=== PATIENT | female | born 1975 | race Caucasian/White ===

== ENCOUNTER 2019-03-21 13:02 | Emergency (ER) | payer BC ==
--- OUTSIDE RECORDS SUMMARY | 2019-03-21 13:05 | XMS REPORT ---
:1975 Author Organization eClinicalWorks Care Team Providers Name Role Phone Tyron Sheparden Provider Role Unavailable Allergies, Adverse Reactions, Alerts Substance Reaction Event Type penicillin Info Not Available Drug Allergy Problems Problem Type Condition Code Onset Dates Condition Status Problem Edema R60.9 Active Problem Abnormal results of thyroid R94.6 Active function studies Problem Cerebral palsy G80.9 Active Problem Obesity (BMI 30.0-34.9) E66.9 Active Problem Hypercholesterolemia E78.00 Active Problem Essential hypertension I10 Active Problem Depression screening Z13.31 Active Problem Abnormal laboratory test R89.9 Active Problem History of colon cancer Z85.038 Active Problem Dietary surveillance and counseling Z71.3 Active Assessment History of colon cancer Z85.038 Active Assessment Hypercholesterolemia E78.00 Active Assessment Depression screening Z13.31 Active Assessment Dietary surveillance and counseling Z71.3 Active Assessment Essential hypertension I10 Active Assessment Obesity (BMI 30.0-34.9) E66.9 Active Medications Medication Code Code Instructions Start End Status Dosage System Date Date Paroxetine HCl [facility] 10593277800 20 MG Orally Active 1 tablet Once a day in the morning Trazodone HCl [facility] 10987829258 50 MG Orally Active 1 tablet Once a day at bedtime as needed Trintellix [facility] 53859650099 10 MG Orally Active 1 tablet Once a day Lisinopril [facility] 29204328582 10 MG Orally Active 1 tablet Once a day BusPIRone HCl [facility] 80591044396 7.5 MG Orally Active 1 tablet Twice a day as needed Lipitor [facility] 21063209930 20 MG Orally Active 1 tablet Once a day in evening Results No Known Results Summary Purpose eClinicalWorks Submission
--- OUTSIDE RECORDS SUMMARY | 2019-03-21 13:05 | XMS REPORT ---
:1975 Author Organization [facility] Address [address] [place] [address] Dr. Garcia. [address] [place] [id number] Care Team Providers Name Role Phone JANETTE CAIN Unavailable Unavailable Problems This patient has no known problems. Allergies, Adverse Reactions, Alerts This patient has no known allergies or adverse reactions. Medications This patient has no known medications. Results Test Description Test Time Test Comments Text Results Atomic Results Result Comments JANIS PEREZ IN 2017-05-05 16:47:00 Reason for FINAL REPORT PATIENT OR/30 MINUTE exam:->intraop left ID: [id number] INCREMENTS sided port History: Chest port placement. FINDINGS: Intraoperative fluoroscopy was provided for a total of 14.9 seconds during left chest port placement. Total estimated patient dose reported as (Ka,r) was 1.6 mGy. Multiple images obtained during the procedure show a left subclavian chest port which appears in expected position with its tip near the caval atrial junction after placement. Limited evaluation of the chest is otherwise unremarkable. Signed: Randy Persaud Verified Date/Time: 05/05/2017 16:47:27 Reading Location: [facility] Reading Room - [facility] 1.310.12 S CHEST, 1 VIEW, 2017-04-28 10:05:00 Reason for exam:->port FINAL REPORT PATIENT NON DEPT placementShould this be ID: [id number] performed at the History: Port bedside?->Yes placement. FINDINGS: Single AP view of the chest shows a normal appearing heart and mediastinum. Lungs are clear, free of edema, focal consolidation or visible effusions. Left subclavian ary catheter has been placed, its tip appears to lie in expected position over the superior vena cava. No pneumothorax. Bones are unremarkable. IMPRESSION: 1. Left chest port appears in expected position. No pneumothorax. Signed: Randy Persaud MDReport Verified Date/Time: 04/28/2017 10:05:34 Reading Location: [facility] Radiology Reading Room REHENSIVE METABOLIC PANEL 2017-04-27 09:52:00 Test Item Value Reference Range Comments TOTAL PROTEIN (BEAKER) (test 6.5 gm/dL 6.0-8.5 tdcy=039) ALBUMIN (BEAKER) (test 4.0 g/dL 3.5-5.0 gaqd=4553) ALKALINE PHOSPHATASE 77 U/L 30-115 (BEAKER) (test skuw=865) BILIRUBIN TOTAL (BEAKER) 0.4 mg/dL 0.1-1.2 (test vgub=169) SODIUM (BEAKER) (test 142 meq/L 135-148 ftfa=720) POTASSIUM (BEAKER) (test 3.4 meq/L 3.6-5.5 yurz=074) CHLORIDE (BEAKER) (test 105 meq/L 98-106 sscv=747) CO2 (BEAKER) (test mizj=492) 26 meq/L 20-29 BLOOD UREA NITROGEN (BEAKER) 19 mg/dL 10-26 (test puqi=995) CREATININE (BEAKER) (test 0.60 mg/dL 0.50-1.20 pnsh=421) GLUCOSE RANDOM (BEAKER) 104 mg/dL 70-110 (test rlnn=860) CALCIUM (BEAKER) (test 9.5 mg/dL 8.5-10.5 lloi=085) AST (SGOT) (BEAKER) (test 13 U/L 5-40 pqxr=275) ALT (SGPT) (BEAKER) (test 15 U/L 5-50 yakl=560) EGFR (BEAKER) (test 109 mL/min/1.73 sq m ESTIMATED GFR IS NOT jayh=8291) ACCURATE CREATININE CLEARANCE IN PREDICTING GLOMERULAR FILTRATION RATE. ESTIMATED GFR IS NOT APPLICABLE FOR DIALYSIS PATIENTS.
--- NOTE | 2019-03-21 13:50 | RAD REPORT ---
EXAM DESCRIPTION: CT - Ct Stroke Brain Wo Cont - 03/21/2019 1:42 pm CLINICAL HISTORY: Numbness COMPARISON: 2014 TECHNIQUE: Computed axial tomography of the head was obtained. All CT scans are performed using dose optimization technique as appropriate and may include automated exposure control or mA/KV adjustment according to patient size. FINDINGS: An intracranial bleed is not seen . The ventricles are normal in caliber. No extra-axial fluid collection is noted. Fluid within the sinuses/ mastoids is not seen. IMPRESSION: No acute intracranial abnormality is seen. If patient's symptoms persist MRI of the bra in would be recommended. Steve of the emergency room was notified at 20:45 p.m. March 21, 2019
[2019-03-21 13:56] LABS: Absolute Lymphocytes (CBC) 0.6 K/uL (0.7-4.9); Basophils % 0.7 % (0-1.3); Hematocrit 41.9 % (36.0-45.0); Lymphocytes % 12.9 % (15.3-44.8); RBC Red Blood Cell Count 4.66 M/uL (3.86-4.86)
[2019-03-21 14:04] LABS: Protime INR 0.92
[2019-03-21 14:13] LABS: BUN Blood Urea Nitrogen 13 mg/dL (7-18); Bicarbonate 27 mmol/L (21-32); Glucose Level 110 mg/dL (74-106); Potassium 3.5 mmol/L (3.5-5.1); Sodium Level 144 mmol/L (136-145)
--- NOTE | 2019-03-21 14:21 | RAD REPORT ---
EXAM DESCRIPTION: Lasha Single View03/21/2019 2:16 pm CLINICAL HISTORY: Shortness of breath COMPARISON: March 2017 FINDINGS: The lungs appear clear of acute infiltrate. The heart is normal size. A central venous li ne has its tip in the superior vena cava. Scoliosis is present IMPRESSION: No acute abnormalities displayed
[2019-03-21] MEDS ORDERED: LORazepam 2 MG/ML VIAL ONE (14:36)
--- NOTE | 2019-03-21 15:18 | EKG ---
Test Date: 2019-03-21 Test Time: 13:52:46 Java J2Ee Application Developer: SOFI MEASUREMENT RESULTS: Intervals: Rate: 98 DC: 132 QRSD: 72 QT: 334 QTc: 426 [place]: P: 77 DC: 132 QRS: 55 T: 16 INTERPRETIVE STATEMENTS: Normal sinus rhythm Right atrial enlargement Abnormal ECG Compared to ECG 10/23/2014 14:17:39 Atrial abnormality now present Electronically Signed On 03-21-19 15:17:48 DRUM SANDER SETTER by Clinton Joy
--- NOTE | 2019-03-21 15:25 | RAD REPORT ---
EXAM DESCRIPTION: MRI - Brain Wo Cont - 03/21/2019 3:12 pm CLINICAL HISTORY: NUMBNESS Headache, drowsiness, CVA symptomology COMPARISON: Ct Stroke Brain Wo Cont dated 03/21/2019 TECHNIQUE: Multi-sequence, multiplanar MR imaging of the brain was performed without contrast. FINDINGS: No intracranial hemorrhage, hydrocephalus or extra-axial fluid collections. No edema or sh ift of midline structures. No findings to suspect brain mass. DWI is negative for acute CVA. Midline structures are normally formed. Mastoid air cells and paranasal sinuses are clear. IMPRESSION: Negative for acute CVA or other acute intracranial abnormality.
--- NOTE | 2019-03-21 15:50 | RAD REPORT ---
EXAM DESCRIPTION: - CP - 03/21/2019 3:45 pm CLINICAL HISTORY: NUMBNESS Headache, drowsiness, CVA COMPARISON: No comparisons TECHNIQUE: Real-time sonographic evaluation of both carotid systems was performed. Doppler interroga tion was performed with waveform tracing bilaterally. FINDINGS: Normal high resistance waveforms are noted in both external carotid arteries. The common c arotid arteries and internal carotid arteries show normal low resistance waveforms. No significant plaque formation is seen. Peak systolic and end diastolic velocity values and the ICA/ CCA ratios are in the non-hemodynamically significant range. Antegrade flow seen in both vertebral arteries. IMPRESSION: No significant atherosclerotic changes noted. No evidence of a hemodynamically significant stenosis.
--- NOTE | 2019-03-21 16:31 | EDPHYS ---
Physician Documentation [facility] Name: Mireille Munguia Age: 43 yrs Sex: Female : 1975 Arrival Date: 03/21/2019 Time: 13:07 Bed 17 Private MD: Suma Shepard ED Physician Chilango Powers HPI: 03/21 14:06 This 43 yrs old Female presents to ER via Wheelchair with complaints of pm1 Numbness Of Arm, High Blood Pressure. 14:06 The patient presents to the emergency department with paresthesias of the left forearm pm1 and left hand. Onset: The symptoms/episode began/occurred 1 hour(s) ago. Context: occurred at work, occurred while the patient was walking with walker. Associated signs and symptoms: Pertinent positives: elevated blood pressure, Pertinent negatives: fever, headache, neck stiffness. Severity of symptoms: in the emergency department the symptoms have improved. The patient has not experienced similar symptoms in the past. The patient has not recently seen a physician. Patient was at working and walking to the restroom with her walker. She felt numbness to the medial aspect of her left forearm and her left hand. checked her blood pressure and it was elevated above her norm. has a history of stroke 4 years ago and was worried that she was having another event. 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 - Coronavirus screen:: The patient has NOT traveled to [place], [place], or [place] in the past 14 days. - Social history:: Smoking status: . - Ebola Screening: : Patient denies travel to an Ebola-affected area in the 21 days before illness onset. ROS: 14:06 Constitutional: Negative for fever, chills, and weight loss, Eyes: Negative for injury, pm1 pain, redness, and discharge, ENT: Negative for injury, pain, and discharge, Neck: Negative for injury, pain, and swelling, Cardiovascular: Negative for chest pain, palpitations, and edema, Respiratory: Negative for shortness of breath, cough, wheezing, and pleuritic chest pain, Abdomen/GI: Negative for abdominal pain, nausea, vomiting, diarrhea, and constipation, Back: Negative for injury and pain, MS/Extremity: Negative for injury and deformity, Skin: Negative for injury, rash, and discoloration. 14:06 Neuro: Positive for tingling, of the left hand and medial aspect of left forearm. Exam: 14:06 Constitutional: This is a well developed, well nourished patient who is awake, alert, pm1 and in no acute distress. Head/Face: Normocephalic, atraumatic. Eyes: Pupils equal round and reactive to light, extra-ocular motions intact. Lids and lashes normal. Conjunctiva and sclera are non-icteric and not injected. Cornea within normal limits. Periorbital areas with no swelling, redness, or edema. ENT: Nares patent. No nasal discharge, no septal abnormalities noted. Tympanic membranes are normal and external auditory canals are clear. Oropharynx with no redness, swelling, or masses, exudates, or evidence of obstruction, uvula midline. Mucous membranes moist. Neck: Trachea midline, no thyromegaly or masses palpated, and no cervical lymphadenopathy. Supple, full range of motion without nuchal rigidity, or vertebral point tenderness. No Meningismus. Chest/axilla: Normal chest wall appearance and motion. Nontender with no deformity. No lesions are appreciated. Cardiovascular: Regular rate and rhythm with a normal S1 and S2. No gallops, murmurs, or rubs. Normal PMI, no JVD. No pulse deficits. Respiratory: Lungs have equal breath sounds bilaterally, clear to auscultation and percussion. No rales, rhonchi or wheezes noted. No increased work of breathing, no retractions or nasal flaring. Abdomen/GI: Soft, non-tender, with normal bowel sounds. No distension or tympany. No guarding or rebound. No evidence of tenderness throughout. Back: No spinal tenderness. No costovertebral tenderness. Full range of motion. Skin: Warm, dry with normal turgor. Normal color with no rashes, no lesions, and no evidence of cellulitis. MS/ Extremity: Pulses equal, no cyanosis. Neurovascular intact. Full, normal range of motion. 14:06 Neuro: Orientation: is normal, Mentation: is normal, Cranial nerves: CN II- XII are normal as tested, Cerebellar function: normal finger to nose testing, Motor: is normal, moves all fours, Sensation: is normal, no obvious gross deficits. Vital Signs: 13:17 BP 159 / 90; Pulse 107; Resp 18; Temp 98.3(O); Pulse Ox 99% on R/A; Weight 63.5 kg (R); tw2 Height 4 ft. 10 in. (147.32 cm); Pain 0/10; 15:52 Pulse 92; Resp 17; Temp 98.3; Pulse Ox 100% on R/A; sg 15:55 BP 132 / 94; sg 16:40 BP 129 / 74; Pulse 87; Resp 17; Temp 98.3; Pulse Ox 99% on R/A; Pain 0/10; sg 13:17 Body Mass Index 29.26 (63.50 kg, 147.32 cm) tw2 MDM: 13:26 Patient medically screened. cinthia 13:50 ED course: CT head: Radiologist report - Negative. pm1 14:03 ED course: TPA not given because not a stroke. Likely cubital tunnel syndrome or pm1 cervical radiculopathy possibly from from using walker. 16:28 Data reviewed: vital signs. Data interpreted: Pulse oximetry: on room air is 100 %. pm1 Interpretation: normal. Counseling: I had a detailed discussion with the patient and/or guardian regarding: the historical points, exam findings, and any diagnostic results supporting the discharge/admit diagnosis, lab results, radiology results, the need for outpatient follow up, to return to the emergency department if symptoms worsen or persist or if there are any questions or concerns that arise at home. 03/21 13:27 Order name: Basic Metabolic Panel; Complete Time: 14:37 pm1 03/21 13:27 Order name: CBC with Diff; Complete Time: 14:37 pm1 03/21 13:27 Order name: Protime (+inr); Complete Time: 14:37 pm1 03/21 13:27 Order name: Ptt, Activated; Complete Time: 14:37 pm1 03/21 13:27 Order name: CT Stroke Brain w/o Contrast; Complete Time: 13:53 pm1 03/21 13:27 Order name: Stroke CXR 1 View; Complete Time: 14:37 pm03/21 13:27 Order name: EKG; Complete Time: 13:28 pm03/21 13:27 Order name: Accucheck; Complete Time: 13:56 pm03/21 13:27 Order name: Cardiac monitoring; Complete Time: 13:56 pm03/21 13:27 Order name: EKG - Nurse/Tech; Complete Time: 13:56 pm03/21 13:27 Order name: IV Saline Lock; Complete Time: 13:56 pm03/21 14:03 Order name: MRI - Brain Wo Cont; Complete Time: 16:01 pm03/21 14:03 Order name: Carotid Artery Bilateral US; Complete Time: 16:01 pm03/21 13:27 Order name: Labs collected and sent; Complete Time: 13:56 pm03/21 13:27 Order name: NPO; Complete Time: 13:56 pm03/21 13:27 Order name: O2 Per Protocol; Complete Time: 13:56 pm03/21 13:27 Order name: O2 Sat Monitoring; Complete Time: 13:56 pm03/21 13:27 Order name: Stroke Swallow Screen; Complete Time: 13:56 pm1 Administered Medications: 14:36 Drug: Ativan 0.5 mg Route: IVP; Site: right forearm; 15:50 Follow up: Response: No adverse reaction; Anxiety unchanged sg Disposition: 03/22 08:55 Co-signature as Attending Physician, Chilango Powers MD I agree with the assessment and cinthia plan of care. Disposition: 03/21/19 16:30 Discharged to Home. Impression: Paresthesia of skin. - Condition is Stable. - Discharge Instructions: Hypertension, Paresthesia, Managing Your Hypertension. - Medication Reconciliation Form, Thank You Letter, Antibiotic Education, Prescription Opioid Use form. - Follow up: Emergency Department; When: As needed; Reason: Worsening of condition. Follow up: Private Physician; When: 2 - 3 days; Reason: Recheck today's complaints, Continuance of care, Re-evaluation by your physician. - Problem is new. - Symptoms have improved. Signatures: Dispatcher [employer] EDLewis Avila RN RN Chilango Ramos MD MD cha Marinas, Patrick, MICRO PALEONTOLOGIST MICRO PALEONTOLOGIST pm1 Radha Wheeler RN RN tw2 Corrections: (The following items were deleted from the chart) 03/21 16:44 16:30 03/21/2019 16:30 Discharged to Home. Impression: Paresthesia of skin. Condition sg is Stable. Forms are Medication Reconciliation Form, Thank You Letter, Antibiotic Education, Prescription Opioid Use. Follow up: Emergency Department; When: As needed; Reason: Worsening of condition. Follow up: Private Physician; When: 2 - 3 days; Reason: Recheck today's complaints, Continuance of care, Re-evaluation by your physician. Problem is new. Symptoms have improved. pm1
--- NOTE | 2019-03-21 16:31 | ER ---
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 Transition of care: patient was not received from another setting of care. Onset of symptoms was March 21, 2019. Risk Assessment: Do you want to hurt yourself or someone else? Patient reports no desire to harm self or others. Initial Sepsis Screen: Does the patient meet any 2 criteria? HR > 90 bpm. No. Patient's initial sepsis screen is negative. Does the patient have a suspected source of infection? No. Patient's initial sepsis screen is negative. Care prior to arrival: None. 13:12 Method Of Arrival: Wheelchair tw2 13:12 Acuity: SYDNI 3 tw2 Triage Assessment: 13:16 General: Appears in no apparent distress. Behavior is calm, cooperative, appropriate tw2 for age. 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 - Coronavirus screen:: The patient has NOT traveled to [place], [place], or [place] in the past 14 days. - Social history:: Smoking status: . - Ebola Screening: : Patient denies travel to an Ebola-affected area in the 21 days before illness onset. Screenin:50 Abuse screen: Denies threats or abuse. Denies injuries from another. Nutritional sg screening: No deficits noted. Tuberculosis screening: No symptoms or risk factors identified. Never had TB. The patient has not been NPO before screening. The patient is alert, able to follow commands. The patient does not exhibit slurred or garbled speech The patient is not exhibiting difficulty speaking. The patient does not exhibit difficulty understanding words. The patient is able to swallow own secretions with no drooling or need for suction. Patient tolerated one teaspoon of water. No drooling, immediate coughing, gurgling, or clearing of the throat was noted. The patient tolerated 90mL of water. No drooling, immediate coughing, gurgling, or clearing of the throat was noted. The patient passed the bedside swallow screening. Oral medications may be given as ordered. Contact Physician for further diet orders. Provider notified of bedside swallow screening results: Steve Portillo TEACHER OF GIFTED STUDENTS. Assessment: 13:16 General: Appears in no apparent distress. well groomed, well developed, well nourished, sg Behavior is calm, cooperative, appropriate for age. 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 Neuro: Level of Consciousness is awake, alert, obeys commands, Oriented to person, place, time, Proof Technician Helper are equal bilaterally Moves all extremities. Speech is normal, Facial symmetry appears normal. Neuro: Reports numbness in left cheek, left jaw and left arm. Cardiovascular: Heart tones S1 S2 present Chest pain is denied. Respiratory: Airway is patent Respiratory effort is even, unlabored, Respiratory pattern is regular, symmetrical. GI: Abdomen is round non-distended. : No signs and/or symptoms were reported regarding the genitourinary system. EENT: No signs and/or symptoms were reported regarding the EENT system. Derm: Skin is pink, warm \T\ dry. Musculoskeletal: Circulation, motion, and sensation intact. Range of motion: intact in all extremities. 13:50 Reassessment: Patient appears in no apparent distress at this time. pt CT scan delayed sg due to critical patient on the scanner bed, 15 min delay. 13:50 Reassessment: pt earringx2 removed in CT, placed in a turqouise container and given to sg pt . 15:42 Reassessment: Patient appears in no apparent distress at this time. pt returned from sg MRI/Ultrasound. 15:43 Reassessment: Patient appears in no apparent distress at this time. Patient and/or sg family updated on plan of care and expected duration. Pain level reassessed. Vital Signs: 13:17 BP 159 / 90; Pulse 107; Resp 18; Temp 98.3(O); Pulse Ox 99% on R/A; Weight 63.5 kg (R); tw2 Height 4 ft. 10 in. (147.32 cm); Pain 0/10; 15:52 Pulse 92; Resp 17; Temp 98.3; Pulse Ox 100% on R/A; sg 15:55 BP 132 / 94; sg 16:40 BP 129 / 74; Pulse 87; Resp 17; Temp 98.3; Pulse Ox 99% on R/A; Pain 0/10; sg 13:17 Body Mass Index 29.26 (63.50 kg, 147.32 cm) tw2 ED Course: 13:07 Patient arrived in ED. mr 13:07 Suma Shepard MD is Private Physician. mr 13:14 Triage completed. tw2 13:16 Patient has correct armband on for positive identification. Bed in low position. Call sg light in reach. Side rails up X2. health insurance agent on. Pulse ox on. NIBP on. Warm blanket given. Head of bed elevated. 13:17 Arm band placed on. tw2 13:18 Steve Portillo NP is PHCP. pm1 13:18 Chilango Powers MD is Attending Physician. pm1 13:42 CT Stroke Brain w/o Contrast In Process Unspecified. EDMS 13:50 Initial lab(s) drawn, by laboratory apparatus glass grinder, sent to lab. sg 14:03 EKG done, by electromechanical technician. reviewed by Steve Portillo NP. at1 14:18 Stroke CXR 1 View In Process Unspecified. EDMS 14:21 Lewis Odom, RN is Primary Nurse. sg 14:54 MRI - Brain Wo Cont In Process Unspecified. EDMS 15:45 Carotid Artery Bilateral US In Process Unspecified. EDMS 16:40 No provider procedures requiring assistance completed. IV discontinued, intact, sg bleeding controlled, No redness/swelling at site. Pressure dressing applied. Administered Medications: 14:36 Drug: Ativan 0.5 mg Route: IVP; Site: right forearm; sg 15:50 Follow up: Response: No adverse reaction; Anxiety unchanged sg Outcome: 16:30 Discharge ordered by MD. pm1 16:40 Discharged to home via wheelchair, with family. sg 16:40 Condition: good 16:40 Discharge instructions given to patient, family, Instructed on discharge instructions, follow up and referral plans. safety practices, Demonstrated understanding of instructions, follow-up care. 16:44 Patient left the ED. sg Signatures: Dispatcher [employer] EDMS Lewis Odom, RN RN sg Earlene Nunez mr McwilliamsLeni, banana handler EKG Tat1 Steve Portillo, TEACHER OF GIFTED STUDENTS TEACHER OF GIFTED STUDENTS pm1 Radha Wheeler RN RN tw2
[2019-03-21 17:08] VITALS: TEMP 98.3
[2019-03-21 17:10] VITALS: O2SAT 100
[2019-03-21 17:17] VITALS: BP 132/94
== END 2019-03-21 16:44 | disposition home or self-care (01) ==
LOC: ER 13:02
DX: R20.2 Paresthesia of skin (principal); I10 Essential (primary) hypertension; Z85.038 Personal history of other malignant neoplasm of large intestine; Z88.0 Allergy status to penicillin
CPT/HCPCS: 36415; 70450; 70551; 71045; 80048; 85025; 85610; 85730; 93005; 93880; 96374; 99284

== ENCOUNTER 2020-05-28 12:23 | Emergency (ER) | payer BC ==
[2020-05-28] MEDS ORDERED: ETOMIDATE 20 MG/10 ML VIAL IV ONE (12:24)
[2020-05-28] MEDS ORDERED: SUCCINYLCHOLINE 20 MG/ML (10 ML) IV ONE (12:24)
--- OUTSIDE RECORDS SUMMARY | 2020-05-28 12:26 | XMS REPORT | Continuity of Care Document ---
:1975 Author Organization [facility] t Address [address] [place] [address] Care Team Providers Name Role Phone James Primary Care Physician Lab, Fam Pob I Attending Clinician Unavailable MARTIN CAIN Attending Clinician Unavailable Problems Condition Condition Condition Status Onset Resolution Last Treating Co mments Source Name Details Category Date Date Treatment Clinician Date Colon Colon Disease Active [facility] cancer [facility] 00:[facility]: Medical 00 [place] Colon Colon Disease Active [facility] cancer 2- [facility] - metastasiz metastasiz 00:00: La dical ed to ed to [address] [place] [address] liver liver Edema Edema Problem [facility] Abnormal Abnormal Problem Active [facility] results of results of Kelli kes - thyroid thyroid Memoria function function l studies studies [facility] Cerebral Cerebral Diagnosis Active [facility] palsy palsy [facility] Obesity Obesity Problem Active [facility] (BMI (BMI [facility] - 30.0-34.9) 30.0-34.9) La moria [facility] Hyperchole Hyperchole Diagnosis Active [facility] sterolemia sterolemia [facility]elli [facility] - [facility] Essential Essential Diagnosis Active [facility] hypertensi hypertensi Kelli kes - on on [facility] Depression Depression Problem Active [facility] screening screening [facility] - [facility] Abnormal Abnormal Problem Active [facility] laboratory laboratory Kelli kes - test test [facility] History of History of Diagnosis Active [facility] colon colon [facility] - cancer, cancer, [facility]oria stage IV stage IV l Outpati ent Clinics Dietary Dietary Problem Active NAJMA Simeon surveillan surveillan [facility] - ce and ce and Memoria counseling counseling l [facility] Anxiety Anxiety Diagnosis [facility] Hypokalemi Hypokalemi Diagnosis Active [facility] Allergies, Adverse Reactions, Alerts Allergy Allergy Status Severity Reaction(s) Onset Inactive Treating Comm ents Source Name Type Date Date Clinician Penicill Propensi Active Rash [facility] in ty to 2 [facility] - adverse 00:00: Medical reaction 00 Center s penicill Adverse Active Info Not [facility] in Reaction Available [facility] Social History Social Habit Start Date Stop Date Quantity Comments Source Sex Assigned At [facility] Tobacco use and 2017-04-29 2017-04-29 Never used [facility] Kelli danay - exposure 00:00:00 00:00:00 [facility] Alcohol intake 2017-04-29 2017-04-29 Current drinker NAJMA rothman [facility] - 00:00:00 00:00:00 of alcohol [facility] (finding) Alcohol Comment 2017-04-27 2017-04-27 socially NAJMA Douglass - 00:00:00 00:00:00 [facility] Smoking Status Start Date Stop Date Source Never smoker [facility] Medications Ordered Filled Start Stop Current Ordering Indication Dosage Frequency Signature Comments Components Source Medication Medication Date Date Medication? Clinician (SIG) Name Name aspirin 81 Yes 81mg QD Take [address] MG EC 3-06 by mouth [facility] - tablet 09:54: daily. Medical 52 Center multivitami Yes 1{tbl} QD Take [address] n 3-06 tablet by [facility] - (MULTIVITAM 09:54: mouth Medic al IN) per 52 daily. [place] tablet cyanocobala Yes 1000ug QD Take 1,[address] [facility] min 3-06 mcg by [facility] - (VITAMIN 09:54: mouth Medical B-12) 1000 52 daily. Center MCG tablet ascorbic Yes 1000mg QD Take 1,[address] acid, 3-06 mg by [facility] - vitamin C, 09:54: mouth Medica l (VITAMIN C) 52 daily. Center 1000 MG tablet atorvastati 2018-0 Yes TK [address] [facility] n (LIPITOR) 1-24 QD [facility] - 20 MG 00:00: Medical tablet 00 Center lisinopril 2018-0 Yes TK [address] (PRINIVIL,Z 1-24 QD [facility] - ESTRIL) 10 00:00: Medical MG tablet 00 Center Lisinopril Lisinopril Yes Sum[place] 1-[address] [facility] tablets [facility] Trintellix Trintellix Yes [place] [address] [facility] [address] [facility] Lipitor Lipitor Yes [place] [address] [facility] in evening [facility] - [facility] Paroxetine Paroxetine Yes [place] [address] HCl HCl [place] in the [facility] - morning [facility] ent Clinics Trazodone Trazodone Yes [place] [address] HCl HCl [place] at bedtime Luke s - as needed [facility] l Outpati ent Clinics BusPIRone BusPIRone Yes [place] [address] HCl HCl [place] as needed [facility] - for [facility] anxiety l Outpati ent Clinics Procedures This patient has no known procedures. Encounters Start End Encounter Admission Attending Care Care Encounter Source Date/Time Date/Time Type Type Clinicians Facility Department ID 2020-04-17 2020-04-17 Outpatient [facility] [id number] [facility] 06:58:00 06:58:00 2020-04-02 2020-04-02 Outpatient [facility] [id number] [facility] 09:21:00 09:21:00 2020-03-05 2020-03-05 [facility] [id number] 08:54:11 09:09:11 Visit Fam Pob I Health [id number] Gay [id number] Professio [phone] nal [address] 2019-09-15 2019-09-15 Outpatient Claudine Mittal [id number] [facility] 13:20:00 13:20:00 [facility] Family Medicine Medicine Outpati ent [facility] 2019-09-08 2019-09-08 Outpatient Claudine Mittal [id number] 14:08:00 14:08:00 [facility] ent [facility] 2019-06-20 2019-06-20 Outpatient Claudine Chowt [id number] 11:30:00 11:30:00 [facility] ent [facility] 2018-08-19 2018-08-19 Outpatient Claudine [place] [id number] 16:20:00 16:20:00 [facility] Results Test Description Test Time Test Comments Results Result Sourc e Comments [place], 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 FINDINGS: Intraoperative fluoroscopy [...] Persaud Verified Date/Time: 05/05/2017 16:47:27 Reading Location: [facility] Diagnostic Imaging Reading Room - [facility] 1310.12 , CHEST, 1 Reason for FINAL REPORT VIEW, NON DEPT 6 exam:->port PATIENT ID: 10:05:00 placementShould this [id number] History: be performed at the Port placement. bedside?->Yes FINDINGS: Single AP view of the chest [...] expected position. No pneumothorax. Signed: Randy Persaud Verified Date/Time: 04/28/2017 10:05:34 Reading Location: [facility] Radiology Reading Room REHENSIVE METABOLIC PANEL 2017-04-27 09:52:00 Test Item Value Reference Range Interpretation Comme nts TOTAL PROTEIN (BEAKER) 6.5 gm/dL 6.0-8.5 (test code = 770) ALBUMIN (BEAKER) (test code 4.0 g/dL 3.5-5.0 = 1145) ALKALINE PHOSPHATASE 77 U/L 30-115 (BEAKER) (test code = 346) BILIRUBIN TOTAL (BEAKER) 0.4 mg/dL 0.1-1.2 (test code = 377) SODIUM (BEAKER) (test code 142 meq/L 135-148 = 381) POTASSIUM (BEAKER) (test 3.4 meq/L 3.6-5.5 L code = 379) CHLORIDE (BEAKER) (test 105 meq/L 98-106 code = 382) CO2 (BEAKER) (test code = 26 meq/L 20-29 355) BLOOD UREA NITROGEN 19 mg/dL 10-26 (BEAKER) (test code = 354) CREATININE (BEAKER) (test 0.60 mg/dL 0.50-1.20 code = 358) GLUCOSE RANDOM (BEAKER) 104 mg/dL 70-110 (test code = 652) CALCIUM (BEAKER) (test code 9.5 mg/dL 8.5-10.5 = 697) AST (SGOT) (BEAKER) (test 13 U/L 5-40 code = 353) ALT (SGPT) (BEAKER) (test 15 U/L 5-50 code = 347) EGFR (BEAKER) (test code = 109 mL/min/1.73 sq m ESTIMATED GFR IS NOT 1092) ACCURATE CRE ATININE CLEARANCE IN RI EDICTING GLOMERULAR FILT RATION RATE. ESTIMATED GFR IS NOT APPLICABLE FOR DIALYSIS PATIEN TS.
[2020-05-28] MEDS ORDERED: LEVETIRACETAM 500 MG/5 ML VIAL IV ONE (13:04)
[2020-05-28] MEDS ORDERED: NA CHLORIDE 0.9% 100 ML ONE (13:04)
[2020-05-28] MEDS ORDERED: LORazepam 2 MG/ML VIAL ONE (13:12)
[2020-05-28 13:23] LABS: Magnesium 2.3 mg/dL (1.8-2.4); Potassium 3.5 mmol/L (3.5-5.1)
[2020-05-28 13:33] LABS: Absolute Lymphocytes (CBC) 1.7 K/uL (0.7-4.9); Basophils % 0.3 % (0-1.3); Hematocrit 42.9 % (36.0-45.0); Lymphocytes % 8.3 % (15.3-44.8); MPV 8.5 fL (7.6-11.3); RBC Red Blood Cell Count 4.31 M/uL (3.86-4.86)
--- NOTE | 2020-05-28 13:44 | RAD REPORT ---
EXAM DESCRIPTION: CT - Head Brain Wo Cont - 05/28/2020 1:32 pm CLINICAL HISTORY: SEIZURE, history of cerebral palsy, history of colon cancer COMPARISON: Ct Stroke Brain Wo Cont dated 03/21/2019 TECHNIQUE: Axial 5 mm thick images of the head were obtained without IV contrast. All CT scans are performed using dose optimization technique as appropriate and may include automated exposure control or mA/KV adjustment according to patient size. FINDINGS: No intracranial hemorrhage is identified. A 2.5 centimeter mass is present in the left parietal lobe. There is extensive 6 centimeter sized are a of surrounding edema. Approximately 2 x 2.5 centimeter area of diminished attenuation without a def ined mass is present in the left frontal lobe inferiorly. A 3 x 1.5 centimeter area of diminished att enuation is present in the right thalamus continuing inferiorly through the cerebral peduncle into th e brainstem and cerebellar peduncle. The 2 left cerebral findings are consistent with mass lesion and surrounding edema. The thalamus and brainstem finding is potentially ischemic but is probably malign michelle as well. There is a questionable 18 millimeter left CP angle mass lesion. There is some edema as sociated with the thalamus and brainstem lesion on the right. Third ventricle is relatively small rel ative to the size of the lateral ventricles. There may be some partial obstructive component. Fourth ventricle is normal size. No midline shift is present. No acute cortical infarction. Mastoid air cells and visualized portions of the paranasal sinuses are clear. No acute bony findings. Findings telephoned to Dr. Gutierrez 13:39 p.m. IMPRESSION: Left parietal 2.5 centimeter mass with surrounding 6 centimeter area of edema. Approximately 2.5 centimeter area of diminished attenuation left frontal lobe probably an additional mass lesion. There is diminished attenuation in the thalamus, right-side brainstem and right cerebellar peduncle t hat is believed to be an additional mass lesion rather than ischemic injury. Patient has a history of colon cancer. It is unknown if that is ongoing disease or remote disease. Cu rrent pattern is more typical for intracranial metastatic disease.
[2020-05-28] MEDS ORDERED: RSI MEDICATION KIT IV ONE (14:05)
[2020-05-28] MEDS ORDERED: KETOROLAC 30 MG/ML INJ ONE (14:06)
[2020-05-28] MEDS ORDERED: LIDOCAINE 4% PATCH ONE (14:06)
[2020-05-28] MEDS ORDERED: MANNITOL 20% 500 ML IV ONE (14:08)
[2020-05-28] MEDS ORDERED: dexAMETHasone 10 MG/ML VIAL ONE (14:08)
[2020-05-28] MEDS ORDERED: DIPHENHYDRAMINE 50 MG/ML VIAL ONE (14:18)
--- NOTE | 2020-05-28 14:43 | ER ---
Nurse's Notes [facility] Name: Mireille Munguia Age: 45 yrs Sex: Female : 1975 Arrival Date: 05/28/2020 Time: 12:25 Bed 20 Private MD: Diagnosis: Brain metastases ;Cerebral edema;Seizure - new onset Presentation: 05/28 12:27 Chief complaint: EMS states: pt had seizure x 2 PTs, no hx of seizures, hx of cerebral iw palsy and recent diagnosis of colon cancer, on oral chemo, upon arrival pt had one minute long generalized seizure, stiffening in right arm and leg, pt now drowsy but awake and answering questions , pt has had diarrhea over the weekend. Coronavirus screen: At this time, the client does not indicate any symptoms associated with coronavirus-19. Ebola Screen: Patient negative for fever greater than or equal to 101.5 degrees Fahrenheit, and additional compatible Ebola Virus Disease symptoms Patient denies exposure to infectious person. Patient denies travel to an Ebola-affected area in the 21 days before illness onset. No symptoms or risks identified at this time. Initial Sepsis Screen: Does the patient meet any 2 criteria? No. Patient's initial sepsis screen is negative. Does the patient have a suspected source of infection? No. Patient's initial sepsis screen is negative. Risk Assessment: Do you want to hurt yourself or someone else? Patient reports no desire to harm self or others. Onset of symptoms was May 28, 2020. 12:27 Method Of Arrival: EMS: [facility] iw 12:27 Acuity: SYDNI 2 iw Historical: - Allergies: 12:32 PENICILLINS; iw - PMHx: 12:32 colon cancer; Hypertension; Cerebral Palsy; iw - Immunization history:: Adult Immunizations up to date. - Social history:: Smoking status: Patient denies any tobacco usage or history of. - Family history:: not pertinent. - Hospitalizations: : No recent hospitalization is reported. Screenin:49 Abuse screen: Denies threats or abuse. Nutritional screening: No deficits noted. bw Tuberculosis screening: No symptoms or risk factors identified. Fall Risk None identified. Assessment: 12:49 General: Appears in no apparent distress. Behavior is calm, cooperative, appropriate bw for age. 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 Neuro: Level of Consciousness is awake, alert, Seizure activity Seizure lasted approximately 1 minutes. Cardiovascular: No deficits noted. Respiratory: No deficits noted. GI: No deficits noted. : No deficits noted. EENT: No deficits noted. Derm: No deficits noted. Musculoskeletal: No deficits noted. 12:59 Reassessment: reports pt had another seizure, lasted approx 1 minute, similar iw to last episode. Dr. Gutierrez notified, verbal order for 1 mg Ativan IVP, given now. 13:34 Reassessment: Patient appears in no apparent distress at this time. No changes from bw previously documented assessment. 14:16 Reassessment: pt became apneic and cyanotic o2 sat 88% on 2L NC. Code blue button bw pushed. MD RT and Charge at bedside. Pt bagged and orders for intubation received. 10 mg of decadron, 100 mg of succ and 20 mg of etomidate administered. 7.5 tube placed, 23 at the teeth. Verified with XR. Pt arm began turning red after medication admin, 25 mg of Benadryl given per order. Mannitol 20% at 0.5mg/kg started. Pt now stable. Chest rise equal and symmetrical, o2 sat 100% on ventilator settings at 400. Pt updated and now at bedside with fela. Pt skin PWD now. Will continue to monitor. Orders for transfer received. 15:09 Reassessment: Report given to [facility] flight paramedics. Unable to give report bw to [facility] [place] [facility] due to bed assignments. Charge nurse aware. Chart and packet sent with flight crew. VSS. Pt stable at this time. Vital Signs: 12:31 BP 149 / 89; Pulse 71; Resp 18 S; Pulse Ox 97% on 2 lpm NC; Weight 65.77 kg (R); iw 13:34 BP 138 / 86; Pulse 74; Resp 18; Pulse Ox 97% on 2 lpm NC; bw 14:38 BP 156 / 98; Pulse 86; Resp 18; Pulse Ox 100% on 65% FiO2 ETT vent; bw ED Course: 12:25 Patient arrived in ED. ds1 12:30 Triage completed. iw 12:31 Arm band placed on. iw 12:32 Inserted saline lock: 22 gauge in left hand, using aseptic technique. Blood collected. iw 12:35 Cesar Gutierrez MD is Attending Physician. rn 12:49 Bernal, Dena, RN is Primary Nurse. bw 12:49 Patient has correct armband on for positive identification. Call light in reach. Side bw rails up X 1. pvc monitor on. Pulse ox on. NIBP on. 12:49 No provider procedures requiring assistance completed. bw 12:53 CBC with Diff Sent. bw 12:53 Basic Metabolic Panel Sent. bw 12:53 Protime (+inr) Sent. bw 13:32 CT Head Brain wo Cont In Process Unspecified. EDMS 13:34 Patient has correct armband on for positive identification. bw 13:46 Inserted saline lock: 20 gauge in left antecubital area, using aseptic technique. sv ,using aseptic technique. done by Harriett HENRIQUEZ. 13:48 Missed attempt(s): 18 gauge in right hand. Bleeding controlled, band aid applied, sv catheter tip intact. 13:50 Inserted saline lock: 20 gauge in right wrist, using aseptic technique. sv 13:58 Assisted provider with intubation using 7.5 mm ETT via oral route. ET tube secured at sv 23cm at the teeth. Set up intubation tray. Intubated by Cesar Gutierrez MD Placement verified by CO2 detector w/ + color change, auscultating bilateral breath sounds, CXR, Patient tolerated well. 14:12 NGT: inserted 16 Fr. other oral, done by Harriett HENRIQUEZ verified placement of air over sv stomach, verified return of gastric contents, Placement verified by X-ray, to intermittent suction. 14:14 X-ray(s) taken. sv 14:17 initiated transfer to [facility], pt was denied due to no icu beds at this time, per rika Gonzalez. 14:26 initiated transfer to [facility]. bd 14:28 pt denied due to no icu capacity. bd 14:29 XRAY Chest (1 view) In Process Unspecified. EDMS 14:33 initiated transfer to [facility]. bd 14:48 pt accepted in transfer to [facility] by dr Horne, admin approval given by rika Soto. 15:21 Bush cath inserted, using sterile technique, 16 Fr., by de, balloon inflated, urine bw specimen collected. other 75 mL clear yellow return, UPT neg, UA sent. Administered Medications: 12:53 Drug: Keppra 1000 mg Route: IV; Rate: calculated rate; Site: left hand; bw 12:59 Drug: Ativan 1 mg Route: IVP; Site: left hand; iw 13:55 Drug: Mannitol 25% 0.5 g/kg Route: IV; Rate: per protocol; Site: left antecubital; iw 13:56 Drug: Decadron - Dexamethasone 10 mg Route: IVP; Site: right hand; bw 13:58 Drug: Etomidate 20 mg Route: IVP; Site: right wrist; sv 13:58 Drug: Succinylcholine 100 mg Route: IVP; Site: right wrist; sv 14:01 Drug: Benadryl (diphenhydrAMINE) 25 mg Route: IVP; Site: right wrist; sv 14:15 Drug: Mannitol 20% 500 ml Route: IV; Rate: calculated rate; Site: left antecubital; bw 14:37 Drug: Versed 2 mg Route: IVP; Site: left hand; bw Outcome: 14:42 ER care complete, transfer ordered by . rn 15:48 Patient left the ED. iw Signatures: Dispatcher [employer] EDMS Melony [place] Stephanie, RN MARTINEZ Ginny Diaz ds1 Regi Cyr RN RN Cesar Gutierrez MD MD rn Webb, MARTINEZ Fernandes RN bw Corrections: (The following items were deleted from the chart) 12:32 12:31 Pulse 100bpm; Resp 18bpm; Spontaneous; Pulse Ox 100% 2 lpm Nasal Cannula; iw iw 14:03 12:31 BP 149 / 89; Pulse 71bpm; Resp 18bpm; Spontaneous; Pulse Ox 97% 2 lpm Nasal iw Cannula; iw
--- NOTE | 2020-05-28 14:43 | EDPHYS ---
Physician Documentation [facility] Name: Mireille Munguia Age: 45 yrs Sex: Female : 1975 Arrival Date: 05/28/2020 Time: 12:25 Bed 20 Private MD: ED Physician Cesar Gutierrez HPI: 05/28 13:26 This 45 yrs old Female presents to ER via EMS with complaints of Seizure. rn 13:26 The patient presents with a history of multiple seizures, a total of 2. Character of rn seizure(s): Loss of consciousness: the patient experienced loss of consciousness, Motor activity: generalized, Incontinence: none, Apnea: the patient did not experience apnea, Eye movements: are unknown. Seizure onset: just prior to arrival. Associated injury: The patient did not suffer any apparent associated injury. Current symptoms: confusion. The patient has not experienced similar symptoms in the past. The patient has not recently seen a physician. Per report, patient with 2 seizures prior to arrival, no hx of seizures in past, has cerebral palsy and recent diagnosis of colon cancer, on latter half of chemo treatment. Had evidence of extension to liver but not head. No fever recently. does report recent diarrhea and decreased PO intake. . Historical: - Allergies: 12:32 PENICILLINS; iw - PMHx: 12:32 colon cancer; Hypertension; Cerebral Palsy; iw - Immunization history:: Adult Immunizations up to date. - Social history:: Smoking status: Patient denies any tobacco usage or history of. - Family history:: not pertinent. - Hospitalizations: : No recent hospitalization is reported. ROS: 13:26 Unable to obtain ROS due to altered mental status. rn Exam: 13:26 Constitutional: Patient somnolent and appears post-ictal, but able to speak some rn comprehensible words. Head/Face: Normocephalic, atraumatic. Eyes: Pupils equal round and reactive to light, extra-ocular motions intact. Cardiovascular: Regular rate and rhythm. No pulse deficits. Respiratory: No increased work of breathing, no retractions or nasal flaring. Abdomen/GI: soft, non-tender Skin: Warm, dry MS/ Extremity: Pulses equal, no cyanosis. Neuro: Somnolent, answers some questions, + left side with contractures, no posturing. Vital Signs: 12:31 BP 149 / 89; Pulse 71; Resp 18 S; Pulse Ox 97% on 2 lpm NC; Weight 65.77 kg (R); iw 13:34 BP 138 / 86; Pulse 74; Resp 18; Pulse Ox 97% on 2 lpm NC; bw 14:38 BP 156 / 98; Pulse 86; Resp 18; Pulse Ox 100% on 65% FiO2 ETT vent; bw Procedures: 14:01 Intubation: Ventilated with 100% NRB prior to procedure. O2 saturation prior to rn registry was 96 %. Intubated orally using # 4 Sofie blade with 7.5 mm ETT. was successful on first attempt. Cricoid pressure applied during procedure. Tube secured with ETT carbone at right side of mouth measured 23 cm at teeth. Placement verified by CO2 detector with (+) color change, auscultating bilateral breath sounds, O2 saturation after procedure was 97 %. Patient tolerated well. MDM: 12:35 Patient medically screened. rn 14:01 ED course: Ct shows multiple brain mets with herniation, no midline shifts but some rn swelling near brainstem, given 10mg decadron, mannitol started, intubated for airway protection after speaking with regarding code status. Will emergently transfer, [facility] since her oncologist is there. . 14:15 ED course: Updated and family regarding metastases and cerebral edema, mannitol rn and decadron given, intubated, awaiting callback for transfer, plan to [facility].. 14:17 ED course: NO beds at [facility]. Family states try at [facility].. rn 14:28 ED course: [facility] also without ICU beds, attempting transfer to [place] with [facility].. rn 14:34 ED course: Verbal report from radiology revealed likely multiple metastases with rn cerebral edema, no midline shift, but + edema of brainstem, possible early herniation.. 14:36 ED course: Pt with GCS 12 upon presentation. . rn 14:39 Response to treatment: There is no appreciated change of the patient's symptoms at this rn time. ED course: Accepted for transfer to [facility] by Dr. Marin. . 05/28 12:36 Order name: CBC with Diff rn 05/28 12:36 Order name: Basic Metabolic Panel rn 05/28 12:36 Order name: Protime (+inr) rn 05/28 12:36 Order name: Ptt, Activated rn 05/28 12:36 Order name: Urine Microscopic Only rn 05/28 12:36 Order name: CK; Complete Time: 13:45 rn 05/28 12:36 Order name: Procalcitonin; Complete Time: 13:45 rn 05/28 12:37 Order name: CBC with Automated Diff EDMS 05/28 12:37 Order name: Basic Metabolic Panel; Complete Time: 13:45 EDMS 05/28 12:37 Order name: Protime (+INR) EDMS 05/28 12:37 Order name: Magnesium; Complete Time: 13:45 rn 05/28 13:43 Order name: CBC Smear Scan EDMS 05/28 15:13 Order name: SARS-COV-2 RT PCR EDMS 05/28 12:36 Order name: IV Start; Complete Time: 12:38 rn 05/28 12:36 Order name: Urine Dipstick-Ancillary (obtain specimen); Complete Time: 15:20 rn 05/28 12:36 Order name: CT Head Brain wo Cont; Complete Time: 13:50 rn 05/28 12:37 Order name: XRAY Chest (1 view) rn 05/28 15:20 Order name: Urine --Ancillary (enter results) 05/28 15:21 Order name: Urine --Ancillary EDFL 05/28 12:36 Order name: EKG - Nurse/Tech; Complete Time: 13:10 rn 05/28 12:56 Order name: Glucose Level rn 05/28 13:29 Order name: Labs - recollect needed: recollect blue top bd 05/28 15:21 Order name: Eleazar; Complete Time: 15:21 bw Administered Medications: 12:53 Drug: Keppra 1000 mg Route: IV; Rate: calculated rate; Site: left hand; bw 12:59 Drug: Ativan 1 mg Route: IVP; Site: left hand; iw 13:55 Drug: Mannitol 25% 0.5 g/kg Route: IV; Rate: per protocol; Site: left antecubital; iw 13:56 Drug: Decadron - Dexamethasone 10 mg Route: IVP; Site: right hand; bw 13:58 Drug: Etomidate 20 mg Route: IVP; Site: right wrist; sv 13:58 Drug: Succinylcholine 100 mg Route: IVP; Site: right wrist; sv 14:01 Drug: Benadryl (diphenhydrAMINE) 25 mg Route: IVP; Site: right wrist; sv 14:15 Drug: Mannitol 20% 500 ml Route: IV; Rate: calculated rate; Site: left antecubital; bw 14:37 Drug: Versed 2 mg Route: IVP; Site: left hand; bw Disposition: 05/28/20 14:42 Transfer ordered to [facility]. Diagnosis are Brain metastases , Cerebral edema, Seizure - new onset. - Reason for transfer: Higher level of care. - Accepting physician is Dr. Marin. - Condition is Serious. - Problem is new. - Symptoms are unchanged. Signatures: Dispatcher [employer] EDFL Divine Dunne, SAWMILLING OPERATOR-C SAWMILLING OPERATOR-CkMelony Ramirez Stephanie RN Regi Barrett RN RN iw Nieto, Roman, MD MD rn Webb, MARTINEZ Fernandes RN bw Corrections: (The following items were deleted from the chart) 14:28 14:10 CORONAVIRUS+MR.LAB.BRZ ordered. [facility] EDFL 15:48 14:42 05/28/2020 14:42 Transfer ordered to [facility]. Diagnosis is Brain iw metastases ; Cerebral edema; Seizure - new onset. Reason for transfer: Higher level of care. Accepting physician is Dr. Marin. Condition is Serious. Problem is new. Symptoms are unchanged. rn
[2020-05-28 14:45] LABS: Protime INR 0.97
[2020-05-28] MEDS ORDERED: MIDAZOLAM HCL 2 MG/2 ML INJ ONE (14:48)
--- NOTE | 2020-05-28 14:49 | RAD REPORT ---
EXAM DESCRIPTION: RAD - Chest Single View - 05/28/2020 2:29 pm CLINICAL HISTORY: seizure Chest pain. COMPARISON: Chest Single View dated 03/21/2019; Chest Pa And Lat (2 Views) dated 03/27/2017; CHEST SING LE VIEW dated 10/23/2014 FINDINGS: Portable technique limits examination quality. The lungs are grossly clear. The heart is normal in size. Tip of the endotracheal tube is at the leve l of the aortic arch.Enteric tube descends in the stomach. Right-sided port catheter has its tip in t he right atrium.
[2020-05-28 15:29] LABS: Urine Specific Gravity/Preg 1.025 (1.005-1.030)
[2020-05-28 15:54] LABS: Urine Bacteria 20-50 /HPF (<20); Urine RBC <5 /HPF (NONE SEEN)
[2020-05-28 15:55] LABS: Urine Mucus 1+ /HPF (NONE SEEN)
[2020-05-28 16:34] VITALS: BP 156/98; O2SAT 100
[2020-05-28 18:42] LABS: Platelet Estimate ADEQ; White Blood Cell Scan OK (OK)
[2020-05-28 18:43] LABS: Blood Morphology Comment NOT SEEN (NOT SEEN)
--- NOTE | 2020-05-29 16:38 | EKG ---
Test Date: 2020-05-28 Test Time: 13:02:31 Aboriginal Education Teacher: KRIS MEASUREMENT RESULTS: Intervals: Rate: 95 RI: 136 QRSD: 78 QT: 346 QTc: 434 [place]: P: 61 RI: 136 QRS: 23 T: 5 INTERPRETIVE STATEMENTS: Normal sinus rhythm Normal ECG Compared to ECG 03/21/2019 13:52:46 Atrial abnormality no longer present Electronically Signed On 05-29-20 16:36:59 CDT by Angel Russell
[2020-05-30 14:50] LABS: Urine Blood Trace-intact (Negative); Urine Glucose Negative (Negative); Urine Protein Negative (Negative); Urine Specific Gravity 1.025 (1.005-1.030); Urine pH 6.5 (5.0-7.0)
== END 2020-05-28 15:48 | disposition short-term general hospital (02) ==
LOC: ER 12:23
DX: C79.31 Secondary malignant neoplasm of brain (principal); R56.9 Unspecified convulsions; G93.6 Cerebral edema; C18.9 Malignant neoplasm of colon, unspecified; I10 Essential (primary) hypertension; G80.9 Cerebral palsy, unspecified; Z20.822 Contact with and (suspected) exposure to COVID-19
CPT/HCPCS: 93005; 87088; 85025; 87086; 80048; 36415; 83735; 82550; 81025; 85610; 85730; 87077; 87186; 84145; 70450; 71045; 94002; 31500; 51702; 99291; U0003; J0330; J1200; J2250; J1100; J1953; 81003; 81015

== ENCOUNTER 2020-06-25 10:38 | Emergency (ER) | payer BC ==
--- OUTSIDE RECORDS SUMMARY | 2020-06-25 10:43 | XMS REPORT | Continuity of Care Document ---
:1975 Author Organization [facility] t Address [address] [place] [address] Care Team Providers Name Role Phone Sharpless Primary Care Physician Cyril Maldonado Attending Clinician Harmony Joy Attending Clinician Lab, Fam Pob I Attending Clinician Unavailable Johny Carvajal MD Attending Clinician Gisela Cool Attending Clinician [phone] MARTIN CAIN Attending Clinician Unavailable Cyril Maldonado Admitting Clinician Payers Payer Name Policy Type Policy Effective Date Expiration Date Sour ce Number [id number] CHOICE 2012 [place] PPO/FEDERAL 510 00:00:00 [employer] [id number] 2012-Pre sentPPO Problems Condition Condition Condition Status Onset Resolution Last Treating Co mments Source Name Details Category Date Date Treatment Clinician Date AMS Diagnosis Active 2020-06-22 Mem oria 4-16 21:54:00 l AMS 00:00: Benigno 00 Active 06/08/2020 [facility] BRAIN METS Diagnosis Active 2020-06-14 Memoria C79.31 4-13 09:38:00 l BRAIN 00:00: Benigno METS 00 C79.31 Active 06/05/2020 [facility] YE Diagnosis Active 2020-06-08 Memoria BILLING/ 4- 18:23:00 l 94 00:00: Benigno BILLING 94 Active [facility] SEIZURE Diagnosis Active 2020-06-14 Me moria 4-05 09:38:00 l SEIZURE 00:00: Benigno 00 Active 05/28/2020 [facility] Rectal Rectal Disease Active 2017-02 [facility] 1[facility]14 [facility] 00 Colon Colon Disease [facility] 00 [place] Colon Colon Disease Active [facility] cancer 2-28 [facility] metastasiz metastasiz 00:00: Hi dical ed to ed to 00 [place] liver liver Edema Edema Problem [facility] Abnormal Abnormal Problem Active [facility] results of results of [facility] - thyroid thyroid Memoria function function l studies studies [facility] Cerebral Cerebral Diagnosis Active [facility] palsy palsy [facility] Obesity Obesity Problem Active [facility] (BMI (BMI [facility] - 30.0-34.9) 30.0-34.9) Hi moria [facility] Clinics Hyperchole Hyperchole Diagnosis Active [facility] sterolemia sterolemia [facility] - Memoria [facility] ent [facility] Essential Essential Diagnosis Active [facility] hypertensi hypertensi Kelli kes - on on Memoria [facility] ent [facility] Depression Depression Problem Active [facility] screening screening [facility] - Memoria [facility] ent [facility] Abnormal Abnormal Problem Active [facility] laboratory laboratory [facility] - test test Memoria [facility] ent [facility] History of History of Diagnosis Active [facility] colon colon [facility] - cancer, cancer, Memoria stage IV stage IV l [facility] Dietary Dietary Problem Active [facility] surveillan surveillan Kelli kes - ce and ce and Memoria counseling counseling [facility] Anxiety Anxiety Diagnosis [facility] Simple Problem Active 2020-06-11 Memor ia obesity 22:25:27 l (disorder) Simple Herm alireza obesity (disorder) Active Problem 06/11/2020 [facility] ALTERED Diagnosis Active 2020-06-22 Hi kim MENTAL 21:54:00 l STATUS, ALTERED Norm n UNSPECIFIE MENTAL D STATUS, UNSPECIFIE D Active [facility] Hypokalemi Hypokalemi Diagnosis Active [facility] Clinics Allergies, Adverse Reactions, Alerts Allergy Allergy Status Severity Reaction(s) Onset Inactive Treating Comm ents Source Name Type Date Date Clinician Penicill Propensi Active Rash [place] n in ty to 2 [facility]i adverse 00:00: st reaction 00 s to drug Penicill Propensi Active Rash [facility] to 213 [facility] - adverse 00:00: Medical reaction 00 Center s penicill penicill Active Memori a ins ins l [place] penicill Adverse Active Info Not [facility] in Reaction Available [facility] Clinics Family History Family Member Diagnosis Comments Start Date Stop Date Source Natural father No Known Problems Yenifer Sandy Natural mother No Known Problems Yenifer Sandy Social History Social Habit Start Date Stop Date Quantity Comments Source Social History 2020-06-01 2020-06-01 [facility] 20:44:02 20:44:02 Alcohol intake 2018-02-10 2018-02-10 Current [facility] thodist 00:00:00 00:00:00 non-drinker of alcohol (finding) Tobacco use and 2018-02-10 2018-02-10 Never used [facility] ethodist exposure 00:00:00 00:00:00 Alcohol Comment 2017-04-27 2017-04-[address] [facility] - 00:00:00 00:00:00 Medical Center Sex Ass[birth year] At [birth year] [facility] ethodist 00:00:00 00:00:00 Smoking Status Start Date Stop Date Source Never smoker [place] [facility] Medications Ordered Filled Start Stop Current Ordering Indication Dosage Frequency Signature Comments Components Source Medication Medication Date Date Medication? Clinician (SIG) Name Name atorvastati No Notes: Kennedy brenda n 4-18 Same as l 02:00: Lipitor Fluoxetine No Notes: Memor ia 4-17 (Same as: l 15:00: Prozac) Aspirin 81 No Notes: Memor ia MG Chewable 4-17 Take with l Tablet 14:00: food. Dexamethaso No Notes: Kennedy brenda ne 4-17 Concentrat l 14:00: ion: [place] 00 4mg/ml dexamethaso Yes 2 mg = 1 Me moria ne 2 mg 4-17 tab, PEG, l oral tablet 12:29: BID, Norm n 00 Taper: Take 4mg (2 tabs) every 6hrs for three days, take 4mg ( 2tabs) every 12hrs for three days , take until follow up, X 30 day, # 60 tab, 0 Refill(s) Hydroxyzine No Notes: Kennedy brenda Hydrochlori 4-17 (Same as: l de 25 MG 10:45: Atarax) Norm n Oral Tablet 00 Avoid alcohol. Dexamethaso No Notes: Memoria ne 4-17 MEDICATION l 05:00: WASTE [place] Product Size: 10 mg Product Wasted: ___ mg Levetiracet No Notes: Kennedy brenda am 4-17 Same as l 02:00: Keppra Benigno 00 Mix with 100 mL NS, LR or D5W MEDICATION WASTE Product Size: 500 mg Product Wasted: ___ mg Docusate No Notes: Memoria 4-17 (Same as: l 02:00: Colace) Benigno (Do Not Crush) sennosides, No Notes: Kennedy brenda CUSTODIAL 4-17 (Same as: l 02:00: Senokot) Benigno 00 Famotidine No Notes: Memor ia 4-17 (Same as: l 02:00: Pepcid) Can be dilute in 5-10cc NS IVP: Slow IV push over at least 2 minutes. Saline No Notes: Memoria Flush 0.9% 4-17 (Same as: l 02:00: BD [place] Posiflush) Sodium No 1,000 mL, Memori a Chloride 4-16 Rate: 50 l 0.9% IV 23:40: ml/hr, Benigno 1,000 mL 00 Infuse over: 20 hr, Route: IV, Dosing Weight 68.182 kg, Total Volume: 1,000, Start date: 06/08/20 18:40:00 CDT, Duration: 30 day, Stop date: 07/08/20 18:39:00 CDT, 1.7, m2, 0 Bisacodyl No Notes: Memori a 4-16 (Same As: l 23:40: Dulcolax, Bisco-Lax) Ondansetron No Notes: Kennedy brenda 4-16 (Same as: l 23:40: Zofran) MEDICATION WASTE Product Size: 4 mg Product Wasted: ___ mg Saline No Notes: Memoria Flush 0.9% 4-16 (Same as: l 23:40: BD Posiflush) Dexamethaso No Notes: Memoria ne 4-16 MEDICATION l 23:20: WASTE Product Size: 10 mg Product Wasted: ___ mg dexamethaso No 2 mg = 1 Me moria ne 2 mg 4-15 tab, PO, l oral tablet 18:07: BID, Take H erm this dose after you have completed 1st round of steroids., X 7 day, # 14 tab, 0 Refill(s), Pharmacy: [facility][id number], 147.32, cm, 06/07/20 5:48:00 CDT, Height, 63.636, kg, 06/07/20 5:48:00 CDT, Weight Sodium No 1,000 mL, Memori a Chloride -15 Rate: 50 l 0.9% IV 16:48: ml/hr, Benigno 1000 mL 00 Infuse over: 20 hr, Route: IV, Dosing Weight 63.636 kg, Total Volume: 1,000, Priority: Routine, Start date: 06/07/20 11:48:00 CDT, Duration: 30 day, Stop date: 07/07/20 11:47:00 CDT, 1.64, m2 Acetaminoph No 325 mg, Mem oria en 4-15 Route: PO, l 16:48: Drug form: Benigno 00 TAB, Q4H, Dosing Weight 63.636, kg, PRN Pain Score 1-3, Start date: 06/07/20 11:48:00 CDT, Duration: 30 day, Stop date: 07/07/20 11:47:00 CDT, 0 Acetaminoph 2020-0 No 1 tab, Kennedy brenda en 325 MG / 4-15 Route: PO, l Hydrocodone 16:48: Drug Form: Benigno Bitartrate 00 TAB, 5 MG Oral Dosing Tablet Weight 63.636, kg, Q4H, PRN Pain Score 4-6, Start date: 06/07/20 11:48:00 CDT, Duration: 30 day, Stop date: 07/07/20 11:47:00 CDT, 0 Bupivacaine 2020-0 No 30 mL, Kennedy brenda Hydrochlori 4-15 Route: l de 2.5 12:00: MISCBenigno MG/ML / 00 Dosing Epinephrine Weight 0.005 MG/ML 63.636, Injectable kg, Solution ONCALL, Start date: 06/07/20 7:00:00 CDT, Duration: 30 day, Stop date: 07/07/20 6:59:00 CDT Bacitracin 2020-0 No 1 appl, Kennedy brenda 0.5 UNT/MG 4-15 Route: l / Polymyxin 12:00: Norm FONG 10 UNT/MG 00 ONCALL, Topical Drug form: Ointment OINT, [Polysporin Priority: ] Routine, Start date: 06/07/20 7:00:00 CDT, Duration: 1 doses or times Fentanyl 2020-0 No 50 Memoria 4-15 microgram, l 12:00: Route: [place] 00 IVP, ONCALL, Dosing Weight 63.636, kg, Priority: Routine, Start date: 06/07/20 7:00:00 CDT, Duration: 1 doses or times bupivacaine 2020-0 No 40 mL, Kennedy brenda 0.5% 4-15 Route: l 12:00: MISC, Benigno 00 Dosing Weight 63.636, kg, ONCALL, Start date: 06/07/20 7:00:00 CDT, Duration: 30 day, Stop date: 07/07/20 6:59:00 CDT Sodium 1-0 No 1,000 mL, Memori a Chloride 4-15 Rate: 50 l 0.9% IV 11:08: ml/hr, Benigno 1,000 mL 00 Infuse over: 20 hr, Route: IV, Dosing Weight 63.636 kg, Total Volume: 1,000, Priority: Routine, Start date: 06/07/20 6:08:00 CDT, Duration: 30 day, Stop date: 07/07/20 6:07:00 CDT, 1.64, m2 Dexamethaso 2021-0 No 6 mg, Memor ia ne 4-15 Route: l 11:08: IVP, Drug [place] 00 form: INJ, ONCE, Dosing Weight 63.636, kg, Start date: 06/07/20 6:08:00 CDT, Stop date: 06/07/20 6:08:00 CDT Famotidine 2021-0 No 20 mg, Memor ia 4-15 Route: l 11:08: IVP, Drug [place] 00 form: INJ, ONCE, Dosing Weight 63.636, kg, Start date: 06/07/20 6:08:00 CDT, Stop date: 06/07/20 6:08:00 CDT Ondansetron 2021-0 No 4 mg, Memor ia 4-15 Route: l 11:08: IVP, Drug [place] 00 form: INJ, Q6H, Dosing Weight 63.636, kg, PRN Nausea & Vomiting, Start date: 06/07/20 6:08:00 CDT, Duration: 30 day, Stop date: 07/07/20 6:07:00 CDT, 0 Promethazin 2021-0 No 25 mg, Kennedy brenda e 4-15 Route: l 11:08: IVPB, Drug Benigno 00 form: INJ, Q6H, Dosing Weight 63.636, kg, PRN Nausea & Vomiting, Start date: 06/07/20 6:08:00 CDT, Duration: 30 day, Stop date: 07/07/20 6:07:00 CDT, 0 Fentanyl 2021-0 No 25 Memoria 4-15 microgram, l 11:08: Route: Benigno 00 IVP, Drug form: INJ, Q1H, Dosing Weight 63.636, kg, PRN Pain Score 7-10, Priority: Routine, Start date: 06/07/20 6:08:00 CDT, Duration: 1 doses or times, Stop date: Limited # of times, 0 Labetalol 2020-0 No 10 mg, Memori a 4-15 Route: l 11:08: IVP, Drug form: INJ, [id number] , Dosing Weight 63.636, kg, PRN Hypertensi on, Start date: 06/07/20 6:08:00 CDT, Duration: 3 doses or times, Stop date: Limited # of times Hydralazine 2020-0 No 10 mg, Kennedy brenda 4-15 Route: l 11:08: IVP, Q4H, Benigno 00 Dosing Weight 63.636, kg, PRN Hypertensi on, Start date: 06/07/20 6:08:00 CDT, Duration: 30 day, Stop date: 07/07/20 6:07:00 CDT Hydroxyzine 2020-0 Yes 25 mg = 1 M emoria Hydrochlori 4-13 tab, PEG, l de 25 MG 12:20: Q6H, PRN Essie nn Oral Tablet 00 as needed for anxiety, # 90 tab, 5 Refill(s), [id number], 147.32, cm, 05/29/20 10:40:00 CDT, Height, 65.909, kg, 05/28/20 18:38:00 CDT, Weight Aspirin 81 2020-0 Yes 81 mg = 1 Me moria MG Chewable 4-13 tab, NJ, l Tablet 12:19: Daily, # Benigno 00 30 tab, 5 Refill(s), Pharmacy: [facility] #[id number], 147.32, cm, 05/29/20 10:40:00 CDT, Height, 65.909, kg, 05/28/20 18:38:00 CDT, Weight atorvastati 2020-0 Yes 80 mg = 1 M emoria n 80 mg 4-13 tab, PEG, l oral tablet 12:19: Bedtime, # [place] 00 30 tab, 5 Refill(s), Pharmacy: [facility] #[id number], 147.32, cm, 05/29/20 10:40:00 CDT, Height, 65.909, kg, 05/28/20 18:38:00 CDT, Weight FLUoxetine Yes 20 mg = 5 Me moria 20 mg/5 mL 4-13 mL, PEG, l oral 12:19: Daily, # Benigno solution 00 150 mL, 5 Refill(s), Pharmacy: [facility] #[id number], 147.32, cm, 05/29/20 10:40:00 CDT, Height, 65.909, kg, 05/28/20 18:38:00 CDT, Weight Famotidine Yes 20 mg = 1 Me moria 20 MG Oral 4-13 tab, PEG, l Tablet 12:18: BID, # 60 Norm n 00 tab, 1 Refill(s), [id number], 147.32, cm, 05/29/20 10:40:00 CDT, Height, 65.909, kg, 05/28/20 18:38:00 CDT, Weight Levetiracet Yes 500 mg = 1 Memoria am 500 MG 4-13 tab, PEG, l Oral Tablet 12:18: BID, # 60 H ermann [Keppra] 00 tab, 2 Refill(s), [id number], 147.32, cm, 05/29/20 10:40:00 CDT, Height, 65.909, kg, 05/28/20 18:38:00 CDT, Weight dexamethaso Yes 2 mg = 1 Me moria ne 2 mg 4-13 tab, PEG, l oral tablet 12:17: BID, Norm n 00 Taper: Take 4mg (2 tabs) every 6hrs for three days, take 4mg ( 2tabs) every 12hrs for three days , take until follow up, X 30 day, # 60 tab, 0 Refill(s), [id number], 147.32, cm, 05/29/20 10:40:00 CDT,... ondansetron No Route: IV, Memoria (ANES) 4-12 Drug form: l 18:51: INJ, ONCE, Benigno 00 Stop date: 06/04/20 13:51:00 CDT dexamethaso No Route: IV, Memoria ne (ANES) 4-12 Drug form: l 18:51: INJ, ONCE, Stop date: 06/04/20 13:51:00 CDT phenylephri No Route: IV, Memoria ne (ANES) 4-12 Drug form: l 18:51: INJ, ONCE, Stop date: 06/04/20 13:51:00 CDT sugammadex No Route: IV, M emoria (ANES) 4-12 Drug form: l 18:51: SOLN, ONCE, Stop date: 06/04/20 13:51:00 CDT Oxycodone No Notes: Memori a 4-12 (Same as: l 18:39: 'Roxicodon e) Hydromorpho No Notes: Kennedy brenda ne 4-12 Same as l 18:39: Dilaudid Fentanyl No Notes: Memoria 4-12 (Same as: l 18:39: Sublimaze) Preservat anatoly free. Flumazenil No Notes: Memor ia 4-12 (Same as: l 18:39: Romazicon) Naloxone No Notes: Memoria 4-12 Same as l 18:39: Narcan Ondansetron No Notes: Kennedy brenda 4-12 (Same as: l 18:39: Zofran) MEDICATION WASTE Product Size: 4 mg Product Wasted: ___ mg ceFAZolin No Route: IV, Me moria (ANES) 4-12 Drug form: l 18:38: INJ, ONCE, Stop date: 06/04/20 13:38:00 CDT lidocaine No Route: IV, Me moria (ANES) 4-12 Drug form: l 18:28: INJ, ONCE, Stop date: 06/04/20 13:28:00 CDT propofol No Route: IV, Mem oria (ANES) 4-12 Drug form: l 18:28: INJ, ONCE, Stop date: 06/04/20 13:28:00 CDT rocuronium No Route: IV, M emoria (ANES) 4-12 Drug form: l 18:28: INJ, ONCE, Stop date: 06/04/20 13:28:00 CDT fentaNYL No Route: IV, Mem oria (ANES) 4-12 Drug form: l 18:28: INJ, ONCE, Stop date: 06/04/20 13:28:00 CDT midazolam No Route: IV, Me moria (ANES) 4-12 Drug form: l 18:13: SOLN, ONCE, Stop date: 06/04/20 13:13:00 CDT Lactated No Route: IV, Mem oria Ringers 4-12 Total l Injection 17:39: Volume: Essie nn IV (ANES) 00 1,000, 1000 mL Start date: 06/04/20 12:39:00 CDT, Stop date: 06/04/20 13:39:00 CDT Aspirin No Notes: Memoria 4-10 Take with l 14:00: food. Fluoxetine No Notes: Memor ia 4-10 (Same as: l 14:00: Prozac) Melatonin 3 No Notes: Kennedy brenda MG Extended 4-10 (Same as: l Release 02:57: Melatonin) alireza atorvastati No Notes: Kennedy brenda n 4-10 Same as l 02:00: Lipitor Famotidine No Notes: Memor ia 4-10 (Same as: l 02:00: Pepcid) Keppra No Notes: Memoria 4-10 Same as: l 02:00: Keppra sennosides, No Notes: Kennedy brenda CUSTODIAL 4-10 (Same as: l 02:00: Senokot) Tylenol No Notes: Do Memor ia 4-09 not exceed l 18:04: 4 gm/day. [place] 00 (Same as: Tylenol) Hydroxyzine No Notes: Kennedy brenda 06-01 (Same as: l 18:04: Atarax) Avoid alcohol. Hydroxyzine No Notes: Kennedy brenda 06-01 (Same as: l 16:54: Atarax) Avoid alcohol. Fluoxetine No Notes: Memor ia 06-01 (Same as: l 16:54: Prozac) atorvastati No Notes: Kennedy brenda n 06-01 Same as l 02:00: Lipitor Aspirin No Notes: . Memori a 08 l 14:00: Levaquin No Notes: Do Kennedy brenda 05-30 not give l 19:00: w/antacids , dairy pdt & minerals Take 1 hr before or 2 hr after dairy products Iohexol No 60 mL, Memoria 05-30 Route: l 17:46: IVP, Drug Form: SOLN, Dosing Weight 65.909, kg, ONCALL, STAT, Start date: 05/30/20 12:46:00 CDT, Duration: 1 doses or times, Dose = 2.2ml/kg, Max dose = 100ml -- "To be infused by Radiology Staff ONLY" Levaquin No Notes: Do Kennedy brenda 05-30 not give l 16:09: w/antacids , dairy pdt & minerals Take 1 hr before or 2 hr after dairy products normal No 1,000 mL, Memori a saline 0.9% 05-30 Rate: 100 l IV 1,000 mL 16:07: ml/hr, Infuse over: 10 hr, Route: IV, Dosing Weight 65.909 kg, Total Volume: 1,000, Start date: 05/30/20 11:07:00 CDT, Duration: 30 day, Stop date: 06/29/20 11:06:00 CDT, 1.67, m2, 0 Levetiracet No Notes: Kennedy brenda am 05-30 Same as: l 02:00: Keppra Famotidine No Notes: Memor ia 4-07 (Same as: l 02:00: Pepcid) Keppra No Notes: Memoria 4-07 Same as: l 02:00: Keppra Famotidine No 20 mg = 1 Me moria 20 MG Oral 4-07 tab, PO, l Tablet 01:20: BID, # 60 Norm n 00 tab, 1 Refill(s), other Acetaminoph Yes 100.4 F, M emoria en 325 MG 4-07 0 l Oral Tablet 01:18: Refill(s) H erm 00 Levetiracet No 500 mg = 1 Memoria am 500 MG 4-07 tab, PO, l Oral Tablet 01:18: BID, # 60 H ermann [Keppra] 00 tab, 2 Refill(s), other dexamethaso No 2 mg = 1 Me moria ne 2 mg 4-07 tab, PO, l oral tablet 01:18: BID, Norm n 00 Taper: Take 4mg (2 tabs) every 6hrs for three days, take 4mg ( 2tabs) every 12hrs for three days , take until follow up, X 30 day, # 100 tab, 0 Refill(s), other heparin No Notes: Memoria sodium, -06 porcine l porcine 21:00: heparin Benigno 2500 UNT/ML 00 Injectable Solution Dexamethaso No 4 mg, 1 Mem oria ne - tab, l 19:00: Route: GT, Drug form: TAB, Q6H-02, Dosing Weight 65.909, kg, Priority: Routine, Start date: 05/29/20 14:00:00 CDT, Duration: 30 day, Stop date: 06/28/20 8:00:00 CDT, 0 Dexamethaso No Notes: Kennedy brenda ne 4-06 Give with l 17:00: food. Benigno 00 (Same As: Decadron) Iohexol No Notes: Memoria 4-06 (same l 14:43: as:Omnipaq ue 350). WASTE: F/P - Black; E - Municipal Trash Bin Famotidine No Notes: Memor ia 20 MG Oral 05-29 (Same as: l Tablet 14:00: Pepcid) Versed No 1 mg, Memoria 05-29 Route: l 08:28: IVP, ONCE, Dosing Weight 65.909, kg, Start date: 05/29/20 3:28:00 CDT, Stop date: 05/29/20 3:28:00 CDT normal No 1,000 mL, Memori a saline 0.9% 05-29 Rate: 75 l IV 1,000 mL 06:35: ml/hr, Infuse over: 13.3 hr, Route: IV, Dosing Weight 65.909 kg, Total Volume: 1,000, Start date: 05/29/20 1:35:00 CDT, Duration: 30 day, Stop date: 06/28/20 1:34:00 CDT, 1.67, m2, 0 Tylenol No Notes: Do Memor ia 05-29 not exceed l 06:17: 4 gm/day. (Same as: Tylenol) Dextrose No 12.5 gm, Memor ia 50% Syringe 05-29 25 mL, l (D50W) 06:16: Route: IVP, Drug Form: INJ, Dosing Weight 65.909, kg, PRN, PRN Blood Glucose Results, Start date: 05/29/20 1:16:00 CDT, Duration: 30 day, Stop date: 06/28/20 1:15:00 CDT, 0 Glucagon No 1 mg, Memoria 05-29 Route: IM, l 06:16: Drug form: PDR/INJ, PRN, Dosing Weight 65.909, kg, PRN Blood Glucose Results, Start date: 05/29/20 1:16:00 CDT, Duration: 30 day, Stop date: 06/28/20 1:15:00 CDT, 0 Insulin No Notes: Memoria regular 06 (Same as: l 06:16: Humulin R) [place] 00 Roll in palms of hands gently; Do not shake vigorously . WASTE: F/P - Black; E - Municipal Trash Bin Stable for 31 days at room temperatur e Expires in days from ____Date Potassium No Notes: Memori a Chloride 05-29 (Same as: l 06:15: KCL) 10 Benigno 00 mEq/100ml product recommende d for peripheral line administra tion. Infuse no faster than 10 mEq/hr if given peripheral ly. sodium No Notes: Memoria phosphate 05-29 Infuse l 06:15: over 4 [place] 00 hour. Do not infuse phosphorou s concurrent ly in the same line as TPN or IVF that contains calcium. For double lumen central lines, phosphorou s may be infused in a separate lumen from TPN. potassium No Notes: Memori a phosphate 05-29 (Same as: l 06:15: K Benign[place] 00 Phosphate) Infuse over 4 hour. Do not infuse phosphorou s concurrent ly in the same line as TPN or IVF that contains calcium. For double lumen central lines, phosphorou s may be infused in a separate lumen from TPN. potassium No Notes: Memori a phosphate-s 05-29 (Same as: l odium 06:15: Phos-NaK) Benigno phosphate 00 Each 1.5 250 mg-280 gm pkt has mg-160 mg 250mg oral powder phosphorou for s. Mix reconstitut w/2.5oz ion water and stir. Magnesium No Notes: Memori a Sulfate 05-29 WASTE: F/P l 06:15: - Sink; E Benigno - Municipal Trash Bin Magnesium No Notes: Memori a Oxide 05-29 (Same as: l 06:15: Mag-Ox [place] 00 400) Magnesium oxide [id number] g elemental magnesium Dose=____m g magnesium oxide (___mg elemental magnesium) Calcium No Notes: Memoria Gluconate 05-29 Contains: l 06:15: calcium Benigno 00 gluconate 20mg/mL NaCl 0.67% 50mL WASTE: F/P - Sink; E - Municipal Trash Bin calcium No Notes: Memoria carbonate -06 (Same As: l 500 mg (200 06:15: Tums) Essie nn mg 00 Calcium elemental Carbonate calcium) 500 mg = oral tablet 200 mg elemental calcium Dose = mg calcium carbonate ( mg elemental calcium) Dexamethaso No Notes: Kennedy brenda ne 06 Concentrat l 04:00: ion: [place] 00 4mg/ml Levetiracet No Notes: Kennedy brenda am - Same as: l 02:00: Keppra Docusate No Notes: Memoria - (Same as: l 02:00: Colace) sennosides, No Notes: Kennedy brenda CUSTODIAL 05-29 (Same as: l 02:00: Senokot) Famotidine No 20 mg, Memor ia 05-29 Route: IV, l 02:00: Q12H, kg, [place] 00 Start date: 05/28/20 21:00:00 CDT, Duration: 30 day, Stop date: 06/27/20 9:00:00 CDT ocular No Notes: Memoria lubricant 05-28 (Same as: l 23:00: Lacri-Lube , Puralube, Duratears Naturale, Artificial Tears, and Tears Again ) Levetiracet No Notes: Kennedy brenda am - Same as l 21:42: Keppra Mix with 100 mL NS, LR or D5W MEDICATION WASTE Product Size: 500 mg Product Wasted: ___ mg Ondansetron No Notes: Kennedy brenda -05 (Same as: l 21:42: Zofran) MEDICATION WASTE Product Size: 4 mg Product Wasted: ___ mg Dexamethaso No Notes: Memoria ne -05 MEDICATION l 21:40: WASTE Product Size: 10 mg Product Wasted: ___ mg lisinopril 2017-02 Yes 10mg QD Take 10 mg H shira (JESSE,Z 1-16 by mouth Meth venita ESTRIL) 10 11:08: daily. st mg tablet 58 atorvastati 2017-02 Yes 20mg QD Take 20 mg [facility] n (LIPITOR) 16 by mouth Meth venita 20 MG 11:08: daily. st tablet 58 Default OP ins aspirin 2017-02 Yes 81mg QD Take 81 mg [place] (ECOTRIN) 16 by mouth Method i 81 MG 11:08: daily. st enteric 58 coated tablet multivitami 2017-02 Yes 1{capsu QD Take 1 H [place] n capsule 16 le} capsule by Meth venita 11:08: mouth st 58 daily. ascorbate 2017-02 Yes Take by Violet on calcium 16 mouth. Methodi (VITAMIN C 11:08: st ORAL) 58 cyanocobala 2017-02 Yes Take by Yenifer hawkins min, 16 mouth. Methodi vitamin 11:08: st B-12, (B-12 58 DOTS ORAL) aspirin 81 Yes 81mg QD Take [address] [facility] 3-06 by mouth [facility] - tablet 09:54: [facility]. [facility] Center multivitami Yes 1{tbl} QD Take [address] n 3-06 tablet by [facility] - (MULTIVITAM 09:54: mouth Medic al IN) per 52 daily. Center tablet cyanocobala Yes 1000ug QD Take 1,[address] min 3-06 mcg by [facility] - (VITAMIN 09:54: mouth Medical B-12) 1000 52 daily. Center MCG tablet ascorbic Yes 1000mg QD Take 1,[address] acid, 3-06 mg by [facility] - vitamin C, 09:54: mouth Medica l (VITAMIN C) 52 daily. Center 1000 MG tablet atorvastati Yes TK [address] [facility] n (LIPITOR) 1-24 QD [facility] - 20 MG 00:00: Medical tablet 00 Center lisinopril 0 Yes TK [address] [facility] (PRINIVIL,Z 1-24 QD [facility] - ESTRIL) 10 00:00: Medical MG tablet 00 Center Lisinopril Lisinopril Yes [place] 1-[address] [facility] Trintellix Trintellix Yes [place] [address] [facility] Lipitor Lipitor Yes [place] [address] [facility] in evening [facility] Paroxetine Paroxetine Yes [place] [address] [facility] HCl HCl [facility] Trazodone Trazodone Yes [place] [address] [facility] [address] HCl HCl [place] at bedtime [facility] - [facility] BusPIRone BusPIRone Yes [place] [address] [facility] HCl HCl [facility] Vital Signs Vital Name Observation Time Observation Value Comments Source Respitory Rate 2020-06-10 01:00:00 [facility] Systolic (mm Hg) 2020-06-10 01:00:00 [place] [facility] [place] Diastolic (mm Hg) 2020-06-10 01:00:00 [facility] [place] Respitory Rate 2020-06-10 00:00:00 [facility] Systolic (mm Hg) 2020-06-10 00:00:00 [place] [facility] [place] Diastolic (mm Hg) 2020-06-10 00:00:00 [facility] Respitory Rate 2020-06-09 19:00:00 [facility] Systolic (mm Hg) 2020-06-09 19:00:00 [place] [facility] [place] Diastolic (mm Hg) 2020-06-09 19:00:00 [facility] Temperature Oral (F) 2020-06-09 05:26:00 99.3 F [facility] [place] Temperature Oral (F) 2020-06-08 23:38:00 99.2 F [facility] [place] Height 2020-06-08 21:41:00 147.32 cm [facility] [place] BMI Calculated 2020-06-08 21:41:00 [facility] Weight 2020-06-08 21:41:00 [facility] Heart Rate 2020-06-08 21:41:00 [facility] [place] Respitory Rate 2020-06-07 20:00:00 [facility] Systolic (mm Hg) 2020-06-07 20:00:00 [place] [facility] [place] Diastolic (mm Hg) 2020-06-07 20:00:00 [facility] [place] Respitory Rate 2020-06-07 19:45:00 [facility] [place] Systolic (mm Hg) 2020-06-07 19:45:00 [place] [facility] [place] Diastolic (mm Hg) 2020-06-07 19:45:00 [facility] [place] Respitory Rate 2020-06-07 19:30:00 [facility] [place] Systolic (mm Hg) 2020-06-07 19:30:00 [place] [facility] [place] Diastolic (mm Hg) 2020-06-07 19:30:00 [facility] [place] Height 2020-06-07 10:48:00 147.32 cm [facility] [place] Weight 2020-06-07 10:48:00 [facility] [place] BMI Calculated 2020-06-07 10:48:00 [facility] Height 2020-06-06 18:25:00 147.32 cm [facility] Weight 2020-06-06 18:25:00 [facility] [place] BMI Calculated 2020-06-06 18:25:00 [facility] [place] Temperature Oral (F) 2020-06-05 16:58:00 98.3 F [facility] Heart Rate 2020-06-05 16:58:00 [facility] Respitory Rate 2020-06-05 16:58:00 [facility] [place] Systolic (mm Hg) 2020-06-05 16:58:00 [place] [facility] [place] Diastolic (mm Hg) 2020-06-05 16:58:00 [facility] Temperature Oral (F) 2020-06-05 13:12:00 98.2 F [facility] Heart Rate 2020-06-05 13:12:00 [facility] Respitory Rate 2020-06-05 13:12:00 [facility] Systolic (mm Hg) 2020-06-05 13:12:00 [place] [facility] [place] Diastolic (mm Hg) 2020-06-05 13:12:00 [facility] Temperature Oral (F) 2020-06-05 09:34:00 98.7 F [facility] Heart Rate 2020-06-05 09:34:00 [facility] Respitory Rate 2020-06-05 09:34:00 [facility] [place] Systolic (mm Hg) 2020-06-05 09:34:00 [place] [facility] [place] Diastolic (mm Hg) 2020-06-05 09:34:00 [facility] [place] Temperature Oral (F) 2020-06-04 04:24:00 98.0 F [facility] [place] Heart Rate 2020-06-04 04:24:00 [facility] [place] Respitory Rate 2020-06-04 04:24:00 [facility] [place] Systolic (mm Hg) 2020-06-04 04:24:00 [place] [facility] [place] Diastolic (mm Hg) 2020-06-04 04:24:00 [facility] [place] Temperature Oral (F) 2020-06-04 01:38:00 98.4 F [facility] Heart Rate 2020-06-04 01:38:00 [facility] [place] Respitory Rate 2020-06-04 01:38:00 [facility] Systolic (mm Hg) 2020-06-04 01:38:00 [place] [facility] [place] Diastolic (mm Hg) 2020-06-04 01:38:00 [facility] [place] Temperature Oral (F) 2020-06-03 21:31:00 99.0 F [facility] [place] Respitory Rate 2020-06-03 21:31:00 [facility] Systolic (mm Hg) 2020-06-03 21:31:00 [place] [facility] [place] Diastolic (mm Hg) 2020-06-03 21:31:00 [facility] [place] Height 2020-05-29 15:40:00 147.32 cm [facility] [place] Height 2020-05-29 13:32:00 147.32 cm [facility] Height 2020-05-29 12:15:00 147.32 cm [facility] Heart Rate 2020-05-29 08:13:00 [facility] Weight 2020-05-28 23:38:00 [facility] [place] BMI Calculated 2020-05-28 23:38:00 [facility] Procedures Procedure Date / Time Performed Performing Clinician [facility] e Procedure on 2017-02-23 00:00:00 [facility] escalante colon<sup>1</sup> Procedure on [facility] [place] bone<sup>2</sup> Plan of Care Planned Activity Planned Date Details Comments Source Future Scheduled 2020-09-23 INFLUENZA VACCINE [facility] 00:00:00 [code = INFLUENZA VACCINE] Future Scheduled 2020-04-12 COVID-19 VACCINE (2 [place] [place] [facility] 00:00:00 - Pfizer 2-dose series) [code = COVID-19 VACCINE (2 - Pfizer 2-dose series)] Future Scheduled 1994 [facility] 00:00:00 malignant neoplasm of cervix (procedure) [code = 853451007] Future Scheduled 1991 Hepatitis C [place] [facility] 00:00:00 screening (procedure) [code = 687684674] Encounters Start End Encounter Admission Attending Care Care Encounter Source Date/Time Date/Time Type Type Clinicians Facility Department ID 2020-05-28 Inpatient U [facility] [id number] [facility] 15:56:00 2020-06-08 2020-06-09 Outpatient Esquenazi [facility] [id number] 16:31:52 21:20:00 Joel Rajat Rooney 2020-06-08 2020-06-09 [facility] [id number] 16:31:52 21:20:00 Joel Rajat Rooney 2020-06-08 2020-06-08 Outpatient E [facility] [id number] [facility] 18:21:00 18:21:00 2020-06-07 2020-06-07 [facility] [id number] 04:31:00 15:00:00 JoelGirish Toribio 2020-06-07 2020-06-07 Outpatient [facility] [id number] [facility] 04:31:00 04:31:00 2020-05-28 2020-06-05 Outpatient Rufino [facility] [id number] 15:56:00 16:59:00 Tatyana Cortez 2020-05-28 2020-05-28 Outpatient Rufino [facility] [id number] 15:56:00 15:56:00 Tatyana Cortez 2020-05-28 2020-05-28 Outpatient [facility] [id number] [facility] 15:55:00 15:55:00 2020-04-17 2020-04-17 Outpatient [facility] [id number] [facility] 06:58:00 06:58:00 2020-04-02 2020-04-02 Outpatient [facility] [id number] [facility] 09:21:00 09:21:00 2020-03-05 2020-03-05 [facility] [id number] 08:54:11 09:09:11 Visit [facility] [id number] [place] [id number] [id number] [address] 2019-09-15 2019-09-15 [facility] [id number] 13:20:00 13:20:00 [facility] Outpati ent [facility] 2019-09-08 2019-09-08 [facility] [id number] [address] 14:08:00 14:08:00 [facility] Outpati ent Clinics 2019-06-20 2019-06-20 [facility] [id number] 11:30:00 11:30:00 [facility] Outpati ent Clinics 2018-08-19 2018-08-19 [facility] [id number] 16:20:00 16:20:00 [facility] ent [facility] Results Test Description Test Time Test Comments Results Result Comments Source CHEM PANEL 2020-06-08 131 [facility] 23:33:00 CHEM PANEL 2020-06-08 21 [facility] 23:33:00 CHEM PANEL 2020-06-08 0.35 [facility] 23:33:00 CHEM PANEL 2020-06-08 135 [facility] 23:33:00 CHEM PANEL 2020-06-08 4.3 [facility] 23:33:00 CHEM PANEL 2020-06-08 102 [facility] 23:33:00 CHEM PANEL 2020-06-08 26 [facility] 23:33:00 CHEM PANEL 2020-06-08 9.8 [facility] 23:33:00 CHEM PANEL 2020-06-08 11.3 [facility] 23:33:00 CHEM PANEL 2020-06-08 130 [facility] 23:33:00 HEMATOLOGY 2020-06-08 23:33:00 Test Item Value Reference Range Interpretation Comme nts PT (test code = PT) 11.9 s 12.0-14.7 [facility] TpitqyrKFIJHRCTNG9442-12-37 23:33:00 Test Item Value Reference Range Interpretation Comments INR (test code = INR) 0.88 1 0.85-1.17 [facility] GgjgaciKUMSJTAHOX8624-87-59 23:33:00 Test Item Value Reference Range Interpretation Comments PTT (test code = PTT) 20.8 s 22.9-35.8 [facility] AkpdmoxZCJSLNUBDR8723-62-58 23:33:00Not Detected (06/08/20 6:33 PM) [facility] SNKBE6027-33-34 23:33:00Yellow *NA*(06/08/20 6:33 PM) [facility] JDUKK0783-72-40 23:33:00Marked *ABN*(06/08/20 6:33 PM) [facility] MHGVK7810-61-37 23:33:00 Test Item Value Reference Range Interpretation Comments UA Spec Grav (test code = UA Spec 1.013 1 Grav) [facility] MYWAW4949-23-73 23:33:00 Test Item Value Reference Range Interpretation Comments UA pH (test code = UA pH) 8.0 1 5.0-8.0 [facility] RXANE1972-84-77 23:33:00Negative *NA*(06/08/20 6:33 PM) [facility] GYFSO2257-46-83 23:33:00Negative (06/08/20 6:33 PM) [facility] GZXPR0924-16-23 23:33:00<1.0[facility] RQLGL3131-58-00 23:33:00Negative (06/08/20 6:33 PM)[facility] LYBFB0577-91-04 23:33:00Negative (06/08/20 6:33 PM)[facility]annHEMATOLOGY 2020-06-08 22:11:0019.0[facility] UepplgbSFXMCFPMOL3170-20-14 22:11:003.90[facility] OmhsfrbJJITEFETLU9563-17-38 22:11:0012.7[facility] KjgzjisXKVUSMFARL9235-83-02 22:11:0037.4[facility] ZaxzqjgBDDUWOGAJH8336-51-85 22:11:0095.9[facility] OQLUVTSQUV6268-21-70 22:11:00 Test Item Value Reference Range Interpretation Comments MCH (test code = MCH) 32.6 pg 27.0-31.0 [facility]YRRMRSSUW3809-75-83 22:11:0034.0[facility]annHEMATOLOGY 2020-06-08 22:11:0016.2[facility] XmjfbbmIILQBLOPTC4505-79-50 22:11:32519Qgyxwtyw FkcyzfkGQJKXWQTGZ0730-97-02 22:11:008.2[facility] ZjennnpWQSLQOCYGQ5714-40-02 22:11:00 Test Item Value Reference Range Interpretation Comments ACT (TEG) Rapid (test code = ACT (TEG) 97 s 86-118 Rapid) [facility] CenterZwxjnfoTMNBIEEKEC5765-41-73 22:11:00 Test Item Value Reference Range Interpretation Comments Split Point Rapid (test code = Split 0.4 min Point Rapid) [facility] CenterBeicjfnRMPSAPOZFZ7427-83-06 22:11:00 Test Item Value Reference Range Interpretation Comments R-time Rapid (test code = R-time 0.5 min 0.4-0.7 Rapid) [facility] CenterZvrzprnRATOBUGDMU9425-49-35 22:11:00 Test Item Value Reference Range Interpretation Comments K-time Rapid (test code = K-time 1.8 min 0.6-2.3 Rapid) [facility] CenterTudvvanPVUMOAEPJE1086-67-83 22:11:00 Test Item Value Reference Range Interpretation Comments Angle Rapid (test code = Angle 75 degrees 64-80 Rapid) [facility] CenterOvedrjnIZNKPZTWAV9870-61-52 22:11:00 Test Item Value Reference Range Interpretation Comments Max Amplitude Rapid (test code = Max 66 mm 52-71 Amplitude Rapid) [facility] CenterHwpjmqaXCRZRNEUID1526-88-61 22:11:009.6[facility]annHEMATOLOGY 2020-06-08 22:11:000.0[facility] UjvexavZDOUWFXORB5662-40-47 22:11:00Normal (06/08/20 5:11 PM)[facility] CpqqzrwPOXQLPVVUB4590-31-75 22:11:00Normal (06/08/20 5:11 PM)[facility] RajgktnUTKENGCBTM9224-15-30 22:11:0092.1[facility] GXLDLEHVOG1551-56-40 22:11:002.2[facility] YedzpqbFJDBEMSWJO6911-78-92 22:11:005.4 [facility] YzfstdbEAEYREYOZF9079-05-52 22:11:000.1[facility] HermannHEMATOLOGY 2020-06-08 22:11:000.2[facility] EfyijblHLCGRLGUZB2526-09-08 22:11:0017.5[facility] AexflokEMOHAQMHDG5767-16-37 22:11:000.4[facility] SbbyqpkFBQOWXIBPM4859-89-48 22:11:001.0[facility] HermannCHEM ATODA2488-73-92 10:56:000.5[facility] HermannCHEM DHBIM7927-72-44 10:56:13990Wwwewvgj HermannCHEM NZEIM2595-89-98 07:16:21382 [facility]annCHE[facility] DXQKN4163-22-01 07:16:0020[facility]annCHEM PANEL 2020-06-05 07:16:000.31[facility] HermannCHEM KMATO6522-01-64 07:16:87659Tikklxgy HermannCHEM LGHNB0266-76-04 07:16:004.2[facility]annCHEM FDTXA8800-25-25 07:16:96360Efdhabie HermannCHEM GLIDF1947-95-26 07:16:0025[facility] HermannCHEM NDEZE3982-32-21 07:16:008.8[facility]annCHEM SMCYC8568-61-40 07:16:0012.2 [facility]annCHEM UKDLD0656-56-84 07:16:43031Viktgtnr HermannHEMATOLOGY 2020-06-05 07:16:0093.4[facility] YuwkwvaQJIDAHQXXL5449-36-85 07:16:003.3[facility] RceoebgVGUAXVHQJZ3065-67-95 07:16:003.3[facility] GmeqgjcRIQAQWOYXR1933-97-49 07:16:0015.9[facility] SxbcsatKNLNPFWNCY7821-62-57 07:16:000.6[facility] ICYKHNTJHI7055-60-47 07:16:000.6[facility] LohaiyvYTBWPSRNGL7620-77-62 07:16:00 17.0[facility] QccalarTDBBVEAEQE6587-85-07 07:16:003.77[facility] HermannHEMATOLOGY 2020-06-05 07:16:0012.8[facility] TomgkuqJOXKNFFEPN6716-23-86 07:16:0037.0[facility] DvavwpaEXPPOVBYFS7362-19-40 07:16:0098.3[facility] LzywlatDHPLQVKZUF5749-68-98 07:16:00 Test Item Value Reference Range Interpretation Comments MCH (test code = MCH) 34.0 pg 27.0-31.0 [facility] RqatezxZVWGIRPCNT1580-97-69 07:16:0034.5[facility] HermannHEMATOLOGY 2020-06-05 07:16:0014.5[facility] WuodmycXGNJDBHMZB0315-81-39 07:16:37553Twxuzwzs TvtlglqXIHDBHZNRO9377-46-76 07:16:009.2[facility] HermannBLOOD BANK RESULTS 2020-06-04 08:16:00Negative (06/04/20 3:16 AM)[facility]annCHEM PANEL 2020-06-04 08:16:002.2[facility] HermannCHEM KIMOU9555-26-04 08:16:25767Ozbdtrpv HermannCHEM VBPFH4085-12-80 08:16:0020[facility] HermannCHEM DINUU9950-05-38 08:16:000.36[facility] HermannCHEM XOALA2705-33-65 08:16:74020Wyfqkvgr HermannCHEM AKFWU3030-99-12 08:16:003.9[facility] HermannCHEM YEPRS3147-82-94 08:16:14711 [facility]annCHEM EZXZB8702-45-98 08:16:0025[facility] HermannCHEM PANEL 2020-06-04 08:16:009.9[facility] HermannCHEM UMBKE6774-84-45 08:16:008.8[facility] HermannCHEM BKRXZ8722-06-31 08:16:20780Xgztadmq HermannCHEM NWYSM1456-32-78 08:16:003.4[facility] CbcjlzeGXFXTCORXX7441-75-07 08:16:0013.5[facility] [place] NHWMEJZZIC0685-52-12 08:16:004.22[facility] ZmlzapqZCXZVITHTK1799-68-94 08:16:00 14.1[facility] GkgpurjQJNQNAAZZQ1210-48-30 08:16:0041.3[facility] HermannHEMATOLOGY 2020-06-04 08:16:0097.7[facility] ZwdznhfIZYOPUYJKW0455-89-30 08:16:00 Test Item Value Reference Range Interpretation Comments MCH (test code = MCH) 33.4 pg 27.0-31.0 [facility] AahpnhiKPBNHDASXJ9682-02-08 08:16:0034.2[facility] HermannHEMATOLOGY 2020-06-04 08:16:0014.3[facility] WbxscgcXKSGGDFBHA6032-06-26 08:16:68753Shjdlvzh KfdahwaRBLHQEBCKJ4756-25-31 08:16:008.2[facility] WjefykcDIJAHYFCEG5127-07-12 08:16:0087.3[facility] XuclpiaYFPFWHEBYF3155-46-46 08:16:006.5[facility] [place] MXSUBFHLVE4452-32-82 08:16:005.8[facility] WrgookiGBEURGUJVN8675-77-60 08:16:000.3 [facility] YqmwvppLFQUQCQOWI6171-49-41 08:16:000.1[facility] HermannHEMATOLOGY 2020-06-04 08:16:0011.7[facility] UjpqiqdPAYRYAHZXB0100-06-43 08:16:000.9[facility] AdkvlwtHIAUANWDFT6940-22-48 08:16:000.8[facility] HermannPARATHYROID PROFILE 2020-06-04 08:16:001.21[facility] HermannPARATHYROID UDQGSZB5922-92-07 08:16:00 1.22[facility] HermannCHEM RFQJT9202-98-90 09:28:07331Dgyapfan HermannCHEM PANEL 2020-06-03 09:28:0022[facility] HermannCHEM FKPMA1661-23-60 09:28:000.25[facility] HermannCHEM WOVPB7374-68-23 09:28:69611Rzhvmwwo HermannCHEM NVZVD8975-90-43 09:28:003.4[facility] HermannCHEM VBRYS6029-47-13 09:28:72039Nceauqcx HermannCHEM JXQVQ2759-48-85 09:28:0024[facility] HermannCHEM WAUVB2340-85-99 09:28:008.1 [facility] HermannCHEM ZKDSK4520-99-51 09:28:008.4[facility] HermannCHEM PANEL 2020-06-03 09:28:34023Ryiazkzg HermannCHEM IQKKD8504-86-71 09:28:001.7[facility] HermannCHEM BCSMR9245-53-04 09:28:002.0[facility] SutiqndOKCJPKWXPQ4689-17-77 09:28:0010.3[facility] CbnqejhWONZJZGFQB9937-99-66 09:28:000.6[facility] [place] ESIHVOXFJG4235-00-76 09:28:000.5[facility] CtkqreaYAVSQREAQE0965-18-89 09:28:00 91.0[facility] FwbasglAKMFTSJVKE3807-21-30 09:28:000.0[facility] HermannHEMATOLOGY 2020-06-03 09:28:005.0[facility] MablroqDBFYXZLYNH2036-22-87 09:28:004.0[facility] HnzzfxuTMYLIEXKKC5310-47-69 09:28:000.0[facility] YnlujijPCBMELQEUI9066-72-25 09:28:00Normal (06/03/20 4:28 AM)[facility] RkgipyzHTFURQXEES1803-60-63 09:28:00 11.3[facility] RoknirlMUDGQOPTWP8556-33-69 09:28:003.91[facility] HermannHEMATOLOGY 2020-06-03 09:28:0013.0[facility] OwtylbtASFSKMETAC5341-88-14 09:28:0038.1[facility] CfosglkBFNSRPKBAD2948-57-50 09:28:0097.4[facility] TjfoksnBDDSWDLLLO2795-19-64 09:28:00 Test Item Value Reference Range Interpretation Comments MCH (test code = MCH) 33.3 pg 27.0-31.0 [facility] YhwedciOPHBEHKBVY7705-18-94 09:28:0034.2[facility] HermannHEMATOLOGY 2020-06-03 09:28:0014.2[facility] HurtpauKFQIUPJTGV6032-61-28 09:28:36652Stjezynx LsawoceYEJPXUWUVW6576-38-15 09:28:009.0[facility] HermannPARATHYROID PROFILE 2020-06-03 09:28:001.19[facility] HermannPARATHYROID CSEJGTZ4184-61-25 09:28:00 1.16[facility] HermannCHEM KWGPA9960-21-67 09:25:98266Cnqfwrov HermannCHEM PANEL 2020-06-02 09:25:0021[facility] HermannCHEM NNYMG5641-65-11 09:25:000.38[facility] HermannCHEM NTSAS6396-76-24 09:25:39585Jujvbjog HermannCHEM CSWLK3352-03-69 09:25:003.6[facility] HermannCHEM FTPBL8203-38-03 09:25:57898Aswboidr HermannCHEM SDUMI6955-11-85 09:25:0026[facility] HermannCHEM VJBYT5628-13-16 09:25:008.6 [facility] HermannCHEM KHOIF3690-49-70 09:25:007.6[facility] HermannCHEM PANEL 2020-06-02 09:25:11887Gubcuaud QskxdozLRWHYTNBIM5036-45-98 09:25:0094.1[facility] KjwkbyaVWTTPMKFXK0768-45-21 09:25:003.4[facility] PeldsccDYZVWQRFNV8532-15-15 09:25:002.4[facility] YmnntneLTBEANQZBP8300-92-53 09:25:000.1[facility] [place] EUFFLMMIUQ4643-38-09 09:25:0016.6[facility] NdpnttrGGTLAYYIAA4424-53-55 09:25:00 0.emorial PaykcbyJJQOXGXTNT2784-60-49 09:25:000.4[facility] HermannHEMATOLOGY 2020-06-02 09:25:0017.6[facility] KqgiddyGYRIUVGPRQ4310-21-73 09:25:004.50[facility] XxhgapzAOCHXAHDHA3680-20-63 09:25:0014.8[facility] NzvhnzjOZJXNGUFQY6211-16-92 09:25:0043.5[facility] VbvhbudSQYCNWALFI2472-73-41 09:25:0096.8[facility] [place] FOANBTDASZ2532-43-12 09:25:00 Test Item Value Reference Range Interpretation Comments MCH (test code = MCH) 32.9 pg 27.0-31.0 [facility] BrupxtlWPRQEUKYCQ9332-15-42 09:25:0034.0[facility] HermannHEMATOLOGY 2020-06-02 09:25:0013.6[facility] NqdhuekYWHXOOIAPA8632-86-21 09:25:58709Nhioskga GhhqkrcTSKEQIRSGK3849-71-69 09:25:008.4[facility] HermannCHEM WSXHR9778-77-49 07:22:003.3[facility] HermannCHEM DBRVH3493-03-64 07:22:0093[facility] HermannCHEM SADVC6760-50-04 07:22:0017[facility] HermannCHEM FAWOW3602-77-44 07:22:000.27 [facility] HermannCHEM EZTZO3118-97-19 07:22:04410Cidsdwhm HermannCHEM PANEL 2020-06-01 07:22:003.6[facility] HermannCHEM NMQHE4584-99-07 07:22:31565Lfxuimnd HermannCHEM PECFN6518-70-00 07:22:0023[facility] HermannCHEM MADJI8805-53-03 07:22:008.8[facility] HermannCHEM WCAJP8522-77-41 07:22:0012.6[facility] HermannCHEM WJNHA5665-32-69 07:22:32662Tocfwosl HermannCHEM HFCTT3242-05-50 07:22:002.0 [facility] WhxxmwmSVLXOWBRCF5611-46-20 07:22:0012.7[facility] HermannHEMATOLOGY 2020-06-01 07:22:003.87[facility] RgdrcskCZIDENUTXR4378-72-85 07:22:0013.0[facility] GavcvenIRSQNEKODR9945-95-24 07:22:0037.7[facility] CrcndtnNSJRHJBCZQ7917-85-69 07:22:0097.4[facility] XuenkydYNVMLTDJMX5762-72-82 07:22:00 Test Item Value Reference Range Interpretation Comments MCH (test code = MCH) 33.6 pg 27.0-31.0 [facility] VlyzieeBIIPQQJVQO8479-97-07 07:22:0034.5[facility] HermannHEMATOLOGY 2020-06-01 07:22:0013.8[facility] OnkmgumTTQIISUULV0158-03-68 07:22:61490Lmwxvist WnmtooyLETGLSKXCL5422-62-95 07:22:008.3[facility] ZaghqtpAQLRVKIAUM9765-49-79 07:22:0091.8[facility] TbpxzegDVAKUBVMTM6076-25-21 07:22:004.0[facility] LUDYTQONAI9132-41-91 07:22:004.2[facility] LoybdsbBZSXLLSDAR7261-48-99 07:22:00 11.6[facility] PsjjyigPCDUQSOCPP8611-82-36 07:22:000.5[facility] HermannHEMATOLOGY 2020-06-01 07:22:000.5[facility] HermannPARATHYROID YNXVUKZ6892-53-06 07:22:001.17 [facility] HermannPARATHYROID QJICWBH8505-75-07 07:22:001.18[facility] HermannCHEM UNVDV4351-34-41 09:20:0018.0[facility] MuppzkwQMNRHNYDZU5743-90-34 09:20:000.1 [facility] ZatbonoKZXDZF3674-11-92 19:24:73157Lnhdnmym QjxoltsNGWTXY0963-75-97 19:24:07788Ysazprsf BrwtwlxIIPHZV7336-24-41 19:24:0050[facility] HermannLIPIDS 2020-05-30 19:24:00 Test Item Value Reference Range Interpretation Comments CHD Risk (test code = CHD Risk) 3.18 1 3.90-5.80 [facility] AnyhqwuBJNOGX9174-70-10 19:24:0088[facility] AyudvomRFLFIZ4862-83-48 19:24:00 Test Item Value Reference Range Interpretation Comments VLDL (test code = VLDL) 21 1 [facility]annSPECIAL QHJVSTUFW6745-58-65 19:24:005.0[facility]annCHEM XCTRP7796-08-04 14:18:0021.0[facility]annCHEM JFVHO9583-57-60 06:04:003.3 [facility]annCHEM NYSEW6977-61-91 06:04:002.2[facility]annHEMATOLOGY 2020-05-30 06:04:000.2[facility]annPARATHYROID JXOUFGE0005-02-00 06:04:001.11 [facility]annPARATHYROID NJCHBCD7976-95-51 06:04:001.15[facility] TETRACYCLINE:SUSC:PT:ISOLATE:ORDQN:BJY6330-16-66 20:07:00Escherichia coli [facility] KptopwhWTXHPXBLZQ8278-81-97 10:30:00 Test Item Value Reference Range Interpretation Comments PT (test code = PT) 13.5 s 12.0-14.7 [facility] FivmibcKCHXILPLMO5829-60-50 10:30:00 Test Item Value Reference Range Interpretation Comments INR (test code = INR) 1.04 1 0.85-1.17 [facility] DdoqyiiDMKDUGPONB5900-22-92 09:39:00 Test Item Value Reference Range Interpretation Comments PTT (test code = PTT) 20.0 s 22.9-35.8 [facility]annCARDIAC YUOVCPY6197-49-23 06:45:00<0.02[facility]annCHEM PITWD6311-02-28 06:45:006.6[facility]annCHEM EDPHT4672-48-42 06:45:003.5 [facility]annCHEM SGTQH9423-22-11 06:45:003.1[facility]annCHEM PANEL 2020-05-29 06:45:00 Test Item Value Reference Range Interpretation Comments A/G Ratio (test code = A/G Ratio) 1.1 1 0.7-1.6 [facility]annCHEM CLRAW0063-31-11 06:45:0034[facility]annCHEM PANEL 2020-05-29 06:45:0073[facility]annCHEM [id number] 06:45:25220Mjjjliyu HermannCHEM IWJDW1200-93-01 06:45:000.5[facility]annCHEM BSPIF9803-42-81 06:45:00<0.1[facility]annURINE AND TAKLQ6339-10-68 06:45:00Dark Yellow *NA*(05/29/20 1:45 AM)[facility] AND XMBQW6543-15-99 06:45:00Marked *ABN*(05/29/20 1:45 AM)[facility] YPHTQ7572-72-83 06:45:00 Test Item Value Reference Range Interpretation Comments UA Spec Grav (test code = UA Spec 1.031 1 Grav) [facility] [id number] 06:45:00 Test Item Value Reference Range Interpretation Comments UA pH (test code = UA pH) 6.0 1 5.0-8.0 [facility]UR[facility] AND NIWRX7175-56-56 06:45:00Negative *NA*(05/29/20 1:45 AM) [facility] MCEDR1791-03-15 06:45:00Moderate *ABN*(05/29/20 1:45 AM) [facility] AMVXQ6534-95-39 06:45:00<1.0[facility]UR[facility] AND QPNNK2728-96-02 06:45:00Positive *ABN*(05/29/20 1:45 AM)[facility] [id number] 06:45:00Negative (05/29/20 1:45 AM)[facility] [id number] 06:45:0013[facility]UR[facility] AND BIHKJ9453-32-61 06:45:007 [facility] [id number] 02:23:00Negative (05/28/20 9:23 PM)[facility]annCARDIAC LRBTMEW1045-36-85 01:16:00<0.02[facility]annIMMUNOLOGY 2020-05-28 22:27:00Not Detected (05/28/20 5:27 PM)[facility] [id number] 22:03:00Negative (05/28/20 5:03 PM)[facility] 2020-05-28 22:03:00 Test Item Value Reference Range Interpretation Comments PT (test code = PT) 13.2 s 12.0-14.7 [facility] CenterAgrsbwjSUQTXYMWCX2420-34-48 22:03:00 Test Item Value Reference Range Interpretation Comments INR (test code = INR) 1.01 1 0.85-1.17 [facility] CenterYvxkaipUUSOUBTKAE2248-03-75 22:03:00 Test Item Value Reference Range Interpretation Comments ACT (TEG) Rapid (test code = ACT (TEG) 121 s 86-118 Rapid) [facility] CenterPaxevupALCHKVZHHE7788-23-80 22:03:00 Test Item Value Reference Range Interpretation Comments Split Point Rapid (test code = Split 0.7 min Point Rapid) [facility] CenterPpjzjprWXXVOMIMFD3092-88-05 22:03:00 Test Item Value Reference Range Interpretation Comments R-time Rapid (test code = R-time 0.8 min 0.4-0.7 Rapid) [facility] CenterGozdxidVQNGAVCJDM4440-35-05 22:03:00 Test Item Value Reference Range Interpretation Comments K-time Rapid (test code = K-time 2.2 min 0.6-2.3 Rapid) [facility] CenterZvqlchwXMXDFDGSQK4624-48-76 22:03:00 Test Item Value Reference Range Interpretation Comments Angle Rapid (test code = Angle 69 degrees 64-80 Rapid) [facility] CenterFyxpuwcSAOMBYVBEL2550-63-16 22:03:00 Test Item Value Reference Range Interpretation Comments Max Amplitude Rapid (test code = Max 52 mm 52-71 Amplitude Rapid) [facility] [id number] 22:03:005.4[facility]annHEMATOLOGY 2020-05-28 22:03:000.0[facility] [id number] 22:03:00Normal (05/28/20 5:03 PM)[facility] [id number] 22:03:00Normal (05/28/20 5:03 PM)[facility] [id number] 22:03:000.2[facility] 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 FINDINGS: Intraoperative fluoroscopy [...] Persaud Verified Date/Time: 05/05/2017 16:47:27 Reading Location: [facility] Diagnostic Imaging Reading Room - [place] [address] 1.310.12 RAD, CHEST, 1 VIEW, NON [id number] 10:05:00Reason for exam:->port placementShould this be performed at the bedside?->YesFINAL REPORT History: Port placement. FINDINGS: Single AP view of the chest sh ows a normal appearing heart and mediastinum. Lungs are clear, free of edema, focal consolidation orvisible effusions. Left subclavian ary catheter has been placed, its tip appears to lie in expected position over the superior vena cava. No pneumothorax. Bones are unremarkable. IMPRESSION: 1. Left chest port appears in expected position. No pneumothorax. Signed: Randy Persaud Verified Date/Time: 04/28/2017 10:05:34 Reading Location: [facility] Radiology Reading Room REHENSIVE METABOLIC [id number] 09:52:00 Test Item Value Reference Range Interpretation Comments TOTAL PROTEIN 6.5 gm/dL 6.0-8.5 (BEAKER) (test code = 770) ALBUMIN (BEAKER) 4.0 g/dL 3.5-5.0 (test code = 1145) ALKALINE PHOSPHATASE 77 U/L 30-115 (BEAKER) (test code = 346) BILIRUBIN TOTAL 0.4 mg/dL 0.1-1.2 (BEAKER) (test code = 377) SODIUM (BEAKER) (test 142 meq/L 135-148 code = 381) POTASSIUM (BEAKER) 3.4 meq/L 3.6-5.5 L (test code = 379) CHLORIDE (BEAKER) 105 meq/L 98-106 (test code = 382) CO2 (BEAKER) (test 26 meq/L 20-29 code = 355) BLOOD UREA NITROGEN 19 mg/dL 10-26 (BEAKER) (test code = 354) CREATININE (BEAKER) 0.60 mg/dL 0.50-1.20 (test code = 358) GLUCOSE RANDOM 104 mg/dL 70-110 (BEAKER) (test code = 652) CALCIUM (BEAKER) 9.5 mg/dL 8.5-10.5 (test code = 697) AST (SGOT) (BEAKER) 13 U/L 5-40 (test code = 353) ALT (SGPT) (BEAKER) 15 U/L 5-50 (test code = 347) EGFR (BEAKER) (test 109 ESTIMATE D GFR IS code = 1092) mL/min/1.73 sq NOT ACCURA TE m CREATININE CLEARANCE IN PREDICTING GLOMERULAR FILTRATION RATE . ESTIMATED GFR I S NOT APPLICABLE FOR DIALYSIS PATIEN TS.
--- NOTE | 2020-06-25 11:11 | RAD REPORT ---
EXAM DESCRIPTION: CT - Head Brain Wo Cont - 06/25/2020 10:55 am CLINICAL HISTORY: seizure, brain tumor Headache, drowsiness COMPARISON: Head Brain Wo Cont dated 05/28/2020; Ct Stroke Brain Wo Cont dated 03/21/2019; Brain Wo Con t dated 03/21/2019; Abdomen Pelvis W Contrast dated 03/27/2017; Colon Barium Enema dated 03/27/2017 TECHNIQUE: All CT scans are performed using dose optimization technique as appropriate and may inclu de automated exposure control or mA/KV adjustment according to patient size. FINDINGS: Area of edema in the posterior left parietal region is again seen, mildly decreased since prior study. The region of edema measures about 5.2 cm with internal vague hyper density, previously measures about 6.0 cmsmall linear area of edema in the left frontal lobe also demonstrates mild size reduction since prior study.Diminished density in the right basal ganglia extending into the brainste m is also moderately improved. No acute hemorrhage or midline shift. The paranasal sinuses and mastoids are clear. The calvarium is intact. IMPRESSION: Moderate improvement is seen in the areas of brain edema since 05/28/2020 study as detai led. No acute hemorrhage or midline shift.
[2020-06-25 11:20] LABS: Absolute Lymphocytes (CBC) 0.1 K/uL (0.7-4.9); Basophils % 0.2 % (0-1.3); Hematocrit 43.2 % (36.0-45.0); Lymphocytes % 1.3 % (15.3-44.8); MPV 7.9 fL (7.6-11.3); RBC Red Blood Cell Count 4.53 M/uL (3.86-4.86)
[2020-06-25] MEDS ORDERED: LEVETIRACETAM 500 MG/5 ML VIAL IV ONE (11:21)
[2020-06-25] MEDS ORDERED: NA CHLORIDE 0.9% 1,000 ML ONE (11:21)
[2020-06-25] MEDS ORDERED: NA CHLORIDE 0.9% 100 ML ONE (11:21)
[2020-06-25 11:41] LABS: ALT/SGPT 138 U/L (12-78); AST/SGOT 31 U/L (15-37); Albumin 3.2 g/dL (3.4-5.0); Alkaline Phosphatase 83 U/L (45-117); BUN Blood Urea Nitrogen 30 mg/dL (7-18); Bicarbonate 31 mmol/L (21-32); Bilirubin Total 0.9 mg/dL (0.2-1.0); Glucose Level 127 mg/dL (74-106); Potassium 3.9 mmol/L (3.5-5.1); Protein, Total 5.5 g/dL (6.4-8.2); Sodium Level 138 mmol/L (136-145)
[2020-06-25 12:51] LABS: Blood Morphology Comment NOT SEEN (NOT SEEN); Platelet Estimate DECR; White Blood Cell Scan OK (OK)
[2020-06-25 12:55] LABS: Urine Blood Trace-intact (Negative); Urine Glucose Negative (Negative); Urine Protein Negative (Negative); Urine Specific Gravity 1.015 (1.005-1.030)
--- NOTE | 2020-06-25 12:55 | ER ---
Nurse's Notes [facility] Name: Mireille Munguia Age: 45 yrs Sex: Female : 1975 Arrival Date: 06/25/2020 Time: 10:38 Bed External Waiting Private MD: Diagnosis: Epilepsy and recurrent seizures Presentation: 06/25 10:39 Chief complaint: EMS states: Witnessed seizure activity lasting approx 2 minutes, hb family called EMS because post ictal phase normally does not last this long. Recently inpatient for new brain mass, receiving radiation therapy. AOx1-2, BP 1473/92, BGL 141, 20g L hand. Coronavirus screen: At this time, the client does not indicate any symptoms associated with coronavirus-19. Ebola Screen: No symptoms or risks identified at this time. Initial Sepsis Screen: Does the patient meet any 2 criteria? No. Patient's initial sepsis screen is negative. Does the patient have a suspected source of infection? No. Patient's initial sepsis screen is negative. Risk Assessment: Do you want to hurt yourself or someone else? Patient reports no desire to harm self or others. Onset of symptoms was June 25, 2020. 10:39 Method Of Arrival: EMS: [facility] hb 10:39 Acuity: SYDNI 2 hb Historical: - Allergies: 10:45 PENICILLINS; hb - Home Meds: 10:45 atorvastatin 80 mg oral tab [Active]; fluoxetine 20 mg/5 mL (4 mg/mL) Oral soln 5 mL hb once daily [Active]; Keppra 500 mg Oral tab 2 times per day [Active]; aspirin 81 mg Oral chew 1 tab once daily [Active]; dexamethasone Oral [Active]; famotidine 20 mg Oral tab 1 tab every 12 hours [Active]; hydroxyzine HCl 25 mg Oral tab as needed [Active]; - PMHx: 10:45 Cerebral Palsy; colon cancer; Hypertension; hb - Immunization history:: Adult Immunizations up to date. - Social history:: Patient/guardian denies using alcohol, street drugs, The patient lives with family, Smoking status: Patient denies any tobacco usage or history of. - Family history:: not pertinent. Screenin:46 Abuse screen: Denies threats or abuse. Denies injuries from another. Nutritional hb screening: No deficits noted. Tuberculosis screening: No symptoms or risk factors identified. Fall Risk Total Kunz Fall Scale indicates High Risk Score (45 or more points). Fall prevention measures have been instituted. Side Rails Up X 2 Frequent Obs/Assessments Occuring As available patient and family educated on Fall Prevention Program and Strategies. Vital Signs: 10:39 BP 119 / 76; Pulse 90; Resp 16; Temp 97.8; Pulse Ox 100% on R/A; Pain 0/10; hb 11:38 BP 118 / 74; Pulse 73; Resp 15; Pulse Ox 95% ; sv 12:40 BP 121 / 90; Pulse 74; Resp 15; Pulse Ox 98% on R/A; hb ED Course: 10:38 Patient arrived in ED. hb 10:39 Ariane Gtz RN is Primary Nurse. ss 10:40 Ciera Maxwell MD is Attending Physician. ma2 10:42 Triage completed. hb 10:45 Arm band placed on. hb 10:46 Patient has correct armband on for positive identification. Placed in gown. Bed in low hb position. Call light in reach. Side rails up X2. Adult w/ patient. 10:54 CT Head Brain wo Cont In Process Unspecified. EDMS 11:52 Primary Nurse role handed off by Ariane Gtz RN sv 11:52 Vika Merino RN is Primary Nurse. sv 19:29 Primary Nurse role handed off by Vika Merino RN ss 19:29 Attending Physician role handed off by Ciera Maxwell MD ss Administered Medications: 11:00 CANCELLED (unable to klarissa epo ): Keppra (levETIRAcetam) 1000 mg PO once ma2 11:06 Drug: NS 0.9% 1000 ml Route: IV; Rate: 1 bolus; Site: right hand; hb 11:06 Drug: Keppra (levETIRAcetam) 1000 mg Route: IV; Rate: calculated rate; Site: right hand;hb 11:24 Follow up: Response: No adverse reaction; IV Status: Completed infusion; IV Intake: sv 100ml 13:07 Drug: Tylenol 1000 mg Route: PO; hb 19:28 Follow up: Response: Medication administered at discharge. hb Intake: 11:24 IV: 100ml; Total: 100ml. sv Outcome: 12:55 Discharge ordered by . ma2 13:26 Patient left the ED. hb Signatures: Dispatcher [employer] EDMagda Wills RN RN Ariane Gtz RN RN ss Baxter, Heather, RN RN Ciera Maxwell MD MD ma2 Corrections: (The following items were deleted from the chart) 19:30 19:29 Patient left the ED. [facility]
--- NOTE | 2020-06-25 12:55 | EDPHYS ---
Physician Documentation [facility] Name: Mireille Munguia Age: 45 yrs Sex: Female : 1975 Arrival Date: 06/25/2020 Time: 10:38 Bed External Waiting Private MD: ED Physician HPI: 06/25 10:42 This 45 yrs old Female presents to ER via Unassigned with complaints of ma2 Seizure. 10:42 The patient presents after having a single isolated seizure. Character of seizure(s): ma2 Loss of consciousness: the patient did not lose consciousness, Motor activity: focal activity, of the face and left arm. Seizure onset: just prior to arrival. Seizure Hx: Cause: brain tumor, Usual frequency:. Current symptoms: Currently, the patient is not experiencing any symptoms. The patient has experienced similar episodes in the past. Historical: - Allergies: 10:45 PENICILLINS; hb - Home Meds: 10:45 atorvastatin 80 mg oral tab [Active]; fluoxetine 20 mg/5 mL (4 mg/mL) Oral soln 5 mL hb once daily [Active]; Keppra 500 mg Oral tab 2 times per day [Active]; aspirin 81 mg Oral chew 1 tab once daily [Active]; dexamethasone Oral [Active]; famotidine 20 mg Oral tab 1 tab every 12 hours [Active]; hydroxyzine HCl 25 mg Oral tab as needed [Active]; - PMHx: 10:45 Cerebral Palsy; colon cancer; Hypertension; hb - Immunization history:: Adult Immunizations up to date. - Social history:: Patient/guardian denies using alcohol, street drugs, The patient lives with family, Smoking status: Patient denies any tobacco usage or history of. - Family history:: not pertinent. ROS: 10:42 Constitutional: Negative for fever, chills, and weight loss. ma2 10:42 All other systems are negative. Exam: 10:42 Constitutional: This is a well developed, well nourished patient who is awake, alert, ma2 and in no acute distress. Head/Face: Normocephalic, atraumatic. Eyes: Pupils equal round and reactive to light, extra-ocular motions intact. Lids and lashes normal. Conjunctiva and sclera are non-icteric and not injected. Cornea within normal limits. Periorbital areas with no swelling, redness, or edema. ENT: Nares patent. No nasal discharge, no septal abnormalities noted. Tympanic membranes are normal and external auditory canals are clear. Oropharynx with no redness, swelling, or masses, exudates, or evidence of obstruction, uvula midline. Mucous membranes moist. Neck: Trachea midline, no thyromegaly or masses palpated, and no cervical lymphadenopathy. Supple, full range of motion without nuchal rigidity, or vertebral point tenderness. No Meningismus. Chest/axilla: Normal chest wall appearance and motion. Nontender with no deformity. No lesions are appreciated. Cardiovascular: Regular rate and rhythm with a normal S1 and S2. No gallops, murmurs, or rubs. Normal PMI, no JVD. No pulse deficits. Respiratory: Lungs have equal breath sounds bilaterally, clear to auscultation and percussion. No rales, rhonchi or wheezes noted. No increased work of breathing, no retractions or nasal flaring. Abdomen/GI: Soft, non-tender, with normal bowel sounds. No distension or tympany. No guarding or rebound. No evidence of tenderness throughout. Back: No spinal tenderness. No costovertebral tenderness. Full range of motion. Skin: Warm, dry with normal turgor. Normal color with no rashes, no lesions, and no evidence of cellulitis. MS/ Extremity: Pulses equal, no cyanosis. Neurovascular intact. Full, normal range of motion. Neuro: Awake and alert, GCS 15, oriented to person, place, time, and situation. has left cranial nerve 6 palsy which is a baslien, other cranial nerves are grossly intact, enedina has left UE weakness 3/5 which is baseline, and Motor strength is 5/5 in all other extremities. Sensory grossly intact. Cerebellar exam normal. gait not tested . Vital Signs: 10:39 BP 119 / 76; Pulse 90; Resp 16; Temp 97.8; Pulse Ox 100% on R/A; Pain 0/10; hb 11:38 BP 118 / 74; Pulse 73; Resp 15; Pulse Ox 95% ; sv 12:40 BP 121 / 90; Pulse 74; Resp 15; Pulse Ox 98% on R/A; hb MDM: 10:40 Patient medically screened. ma2 10:42 Differential diagnosis: seizure, intracranial bleeding vs brain mets vs. Data reviewed: ma2 vital signs. 12:54 Counseling: I had a detailed discussion with the patient and/or guardian regarding: the ma2 historical points, exam findings, and any diagnostic results supporting the discharge/admit diagnosis, the presence of at least one elevated blood pressure reading (>120/80) during this emergency department visit, the need for outpatient follow up. Response to treatment: the patient's symptoms have markedly improved after treatment. 06/25 10:42 Order name: CMP; Complete Time: 11:51 sc2 06/25 10:42 Order name: CBC with Diff ma2 06/25 10:42 Order name: Magnesium; Complete Time: 11:51 ma2 06/25 10:42 Order name: CT Head Brain wo Cont; Complete Time: 11:51 sc2 06/25 12:50 Order name: CBC Smear Scan EDMS 06/25 12:55 Order name: Urine Dipstick-Ancillary EDMS Administered Medications: 11:00 CANCELLED (unable to klarissa epo ): Keppra (levETIRAcetam) 1000 mg PO once ma2 11:06 Drug: NS 0.9% 1000 ml Route: IV; Rate: 1 bolus; Site: right hand; hb 11:06 Drug: Keppra (levETIRAcetam) 1000 mg Route: IV; Rate: calculated rate; Site: right hand;hb 11:24 Follow up: Response: No adverse reaction; IV Status: Completed infusion; IV Intake: sv 100ml 13:07 Drug: Tylenol 1000 mg Route: PO; hb 19:28 Follow up: Response: Medication administered at discharge. Disposition: 06/25/20 12:55 Discharged to Home. Impression: Epilepsy and recurrent seizures. - Condition is Stable. - Discharge Instructions: Seizure, Adult. - Medication Reconciliation Form, Thank You Letter, Antibiotic Education, Prescription Opioid Use form. - Follow up: Private Physician; When: Tomorrow; Reason: Continuance of care. - Notes: follow up with your neurologist this week Signatures: Dispatcher [employer] EDMS Ariane Gtz RN RN Vika Merino RN RN Ciera Maxwell MD MD ma Magda Diallo RN sv Corrections: (The following items were deleted from the chart) 11:00 10:42 Keppra (levETIRAcetam) 1000 mg PO once ordered. ma2 ma2 13:26 12:55 06/25/2020 12:55 Discharged to Home. Impression: Epilepsy and recurrent seizures. hb Condition is Stable. Forms are Medication Reconciliation Form, Thank You Letter, Antibiotic Education, Prescription Opioid Use. Follow up: Private Physician; When: Tomorrow; Reason: Continuance of care. ma2 19:29 13:26 06/25/2020 12:55 Discharged to Home. Impression: Epilepsy and recurrent seizures. ss Condition is Stable. Discharge Instructions: Seizure, Adult. Forms are Medication Reconciliation Form, Thank You Letter, Antibiotic Education, Prescription Opioid Use. Follow up: Private Physician; When: Tomorrow; Reason: Continuance of care. hb
[2020-06-25] MEDS ORDERED: ACETAMINOPHEN 500 MG TAB ONE (13:16)
[2020-06-25 13:31] VITALS: TEMP 97.8
[2020-06-25 13:33] VITALS: BP 121/90; O2SAT 98
== END 2020-06-25 19:29 | disposition home or self-care (01) ==
LOC: ER 10:38
DX: G40.802 Other epilepsy, not intractable, without status epilepticus (principal); C71.9 Malignant neoplasm of brain, unspecified; I10 Essential (primary) hypertension; G80.9 Cerebral palsy, unspecified; Z85.038 Personal history of other malignant neoplasm of large intestine; Z88.0 Allergy status to penicillin; Z79.82 Long term (current) use of aspirin
CPT/HCPCS: 85025; 36415; 83735; 81003; 80053; 70450; J1953; J7030; 96365; 99283

== ENCOUNTER 2020-09-17 10:54 | Emergency (ER) | payer BC ==
--- OUTSIDE RECORDS SUMMARY | 2020-09-17 10:58 | XMS REPORT | Continuity of Care Document ---
:1975 Author Organization [facility] t Address [address] [place] [address] Care Team Providers Name Role Phone Sharpless Primary Care Physician HERBIE Attending Clinician Unavailable Lab, Fam Pob I Attending Clinician Unavailable Wei RAMIREZ, Johny Attending Clinician MARTIN CAIN Attending Clinician Unavailable Payers Payer Name Policy Type Policy Effective Date Expiration Date Sour ce Number BCBS OUT OF [id number] 2012 2024 STATE 510 00:00:00 00:00:00 BCBSBCBS CHOICE 2012 [place] PPO/FEDERAL 510 00:00:00 [employer] [id number] -Pre sentPPO Problems Condition Condition Condition Status Onset Resolution Last Treating Co mments Source Name Details Category Date Date Treatment Clinician Date Rectal Rectal Disease Active 2017-02 [place] cancer cancer 1-14 [facility] st 00 Colon Colon Disease Active [facility] 3-06 [facility] 00 [place] Colon Colon Disease Active [facility] cancer cancer 2-28 [facility] metastasiz metastasiz 00:00: Me dical ed to ed to 00 Center liver liver Edema Edema Problem [facility] Abnormal Abnormal Problem [facility] results of results of [facility] [facility] - thyroid thyroid [facility] function function l studies studies Outpati ent [facility] Cerebral Cerebral Diagnosis Active [facility] palsy palsy [facility] Obesity Obesity Problem Active [facility] (BMI (BMI [facility] - 30.0-34.9) 30.0-34.9) Me moria l [facility] Hyperchole Hyperchole Diagnosis Active [facility] sterolemia sterolemia [facility] - [facility]oria l [facility] Essential Essential Diagnosis Active [facility] hypertensi hypertensi [facility] - on on [facility] Depression Depression Problem Active [facility] screening screening [facility] - [facility] Abnormal Abnormal Problem Active [facility] laboratory laboratory [facility] - [facility] History of History of Diagnosis Active [facility] colon colon [facility] - cancer, cancer, [facility] stage IV stage IV l [facility] Dietary Dietary Problem Active [facility] surveillan surveillan [facility] - ce and ce and [facility]oria counseling counseling [facility] Anxiety Anxiety Diagnosis [facility] Hypokalemi Hypokalemi Diagnosis Active [facility] Allergies, Adverse Reactions, Alerts Allergy Allergy Status Severity Reaction(s) Onset Inactive Treating Comm ents Source Name Type Date Date Clinician Penicill Propensi Active Rash [place] in ty to 213 [facility] adverse 00:00: st reaction 00 s to drug Penicill Propensi Active Rash [facility] to 2-13 [facility] - adverse 00:00: Medical reaction 00 Center s penicill Adverse Active Info Not [facility] Reaction Available [facility] Family History Family Member Diagnosis Comments Start Date Stop Date Source Natural father No Known Problems Yeniferyrn hawkins [employer] Natural mother No Known Problems Yenifer Andinoist Social History Social Habit Start Date Stop Date Quantity Comments Source Tobacco use and 2018-02-10 2018-02-10 Never used [facility] ethodist exposure 00:00:00 00:00:00 Alcohol intake 2018-02-10 2018-02-10 Current [facility] thodist 00:00:00 00:00:00 non-drinker of alcohol (finding) Alcohol Comment 2017-04-27 2017-04-[address] [facility] - 00:00:00 00:[facility]:00 [facility] Sex Assigned At [birth year] Steven Poretr ethodist 00:00:00 00:00:00 Smoking Status Start Date Stop Date Source Never smoker Steven Methodis t Medications Ordered Filled Start Stop Current Ordering Indication Dosage Frequency Signature Comments Components Source Medication Medication Date Date Medication? Clinician (SIG) Name Name lisinopril 2017-02 Yes 10mg QD Take 10 mg [place] (PRINIVIL,Z 16 by mouth Meth venita ESTRIL) 10 11:08: [...] 58 daily. ascorbate 2017-02 Yes Take by [place] on calcium 16 mouth. [facility] (VITAMIN C 11:08: st ORAL) 58 cyanocobala 2017-02 Yes Take by Yenifer stom[place] min, -16 mouth. [facility] vitamin 11:08: st B-12, (B-12 [...] - 20 MG 00:00: Medical tablet 00 [place] lisinopril 2018-0 Yes TK 1 T PO [...] Procedures This patient has no known procedures. Plan of Care Planned Activity Planned Date Details Comments Source Future Scheduled 2020-09-23 INFLUENZA VACCINE [place] [facility] Test 00:00:00 [code = INFLUENZA VACCINE] Future Scheduled 2020-04-12 COVID-19 VACCINE (2 [place] [facility] Test 00:00:00 - Pfizer 2-dose series) [code = COVID-19 VACCINE (2 - Pfizer 2-dose series)] Future Scheduled 1994 Screening for [facility] thodist Test 00:00:00 malignant neoplasm of cervix (procedure) [code = 956624620] Future Scheduled 1991 Hepatitis C [place] Met hodist Test 00:00:00 screening (procedure) [code = 959518022] Encounters Start End Encounter Admission Attending Care Care Encounter Source Date/Time Date/Time Type Type Clinicians Facility Department ID 2020-07-05 Outpatient HERBIE [facility] [id number] [place] 01:03:36 [facility] 2020-05-28 Inpatient U [facility] [id number] [facility] 15:56:00 2020-07-05 2020-07-05 Outpatient [facility] [id number] [facility] 05:00:00 05:00:00 2020-07-04 2020-07-04 Outpatient [id number] 11:00:00 11:00:00 2020-06-08 2020-06-08 Outpatient E [id number] [facility] 18:21:00 18:21:00 2020-06-07 2020-06-07 Outpatient [facility] [id number] [facility] 04:31:00 04:31:00 2020-05-28 2020-05-28 Outpatient [facility] [id number] [facility] 15:55:00 15:55:00 2020-04-17 2020-04-17 Outpatient [facility] [id number] [facility] 06:58:00 06:58:00 2020-04-02 2020-04-02 Outpatient [facility] [id number] [facility] 09:21:00 09:21:00 2020-03-05 2020-03-05 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 Lab, [facility] [id number] 08:54:11 09:09:11 Visit [facility] [id number] [id number] Professio [phone] nal [address] 2019-09-15 2019-09-15 [facility] [id number] 13:20:00 13:20:00 [facility] Outpati [facility] Clin[facility] 2019-09-08 2019-09-08 [facility] [id number] 14:08:00 14:08:00 [facility] Outpati [facility] Clinics 2019-06-20 2019-06-20 [facility] [id number] 11:30:00 11:30:00 [facility] Outpat[facility] Clin[facility] 2018-08-19 2018-08-19 [facility] [id number] 16:20:00 16:20:00 [facility] Outpati [facility] Clinics Results Test Description Test Time Test Comments Results Result Sourc e Comments [place], [place] 2017-04-23 Reason for FINAL REPORT OR/30 MINUTE 3 exam:->intraop left PATIENT ID: INCREMENTS 16:47:00 sided port [id number] History: Chest port placement. FINDINGS: Intraoperative fluoroscopy [...] Persaud Verified Date/Time: 05/05/2017 16:47:27 Reading Location: [facility] Diagnostic Imaging Reading Room - [facility] 1.310.12 , CHEST, 1 Reason for FINAL REPORT VIEW, NON DEPT 6 exam:->port PATIENT ID: 10:05:00 placementShould this [id number] History: be performed at the Port placement. [...] Persaud Verified Date/Time: 04/28/2017 10:05:34 Reading Location: [facility] [address] Radiology Reading Room REHENSIVE METABOLIC PANEL 2017-04-27 [...] NOT 1092) ACCURATE CRE ATININE CLEARANCE IN [place] EDICTING GLOMERULAR FILT RATION RATE. ESTIMATED GFR IS NOT APPLICABLE FOR DIALYSIS PATIEN TS.
--- NOTE | 2020-09-17 14:07 | RAD REPORT ---
EXAM DESCRIPTION: RAD - ENTEROSTOMY TUBE CHECK W/CONTR - 09/17/2020 1:48 pm CLINICAL HISTORY: check placement COMPARISON: Colon Barium Enema dated 03/27/2017 FINDINGS: KUB images were obtained prior to and subsequent to repositioning or replacement of the PE G tube. Engagement Quality Consultant images show no unexpected finding. Following retrograde injection via the PEG tube all contrast appears be within the lumen of the stomach and small bowel. No extravasation or extraluminal contrast identifiable. IMPRESSION: PEG tube repositioning appears well positioned within the stomach. No extravasation of c ontrast identifiable.
--- NOTE | 2020-09-18 17:24 | EDPHYS ---
Physician Documentation [facility] Name: Mireille Munguia Age: 45 yrs Sex: Female : 1975 Arrival Date: 09/17/2020 Time: 10:57 Bed 26 Private MD: Roberto Murphy ED Physician Cesar Gutierrez HPI: 09/17 14:49 This 45 yrs old Female presents to ER via Wheelchair with complaints of kb Pulled Out Peg Tube. 14:49 reports he was lifting patient on to bed and accidentally pulled PEG-tube out. kb Onset: The symptoms/episode began/occurred just prior to arrival. Severity of symptoms: At their worst the symptoms were mild in the emergency department the symptoms are unchanged. The patient has not experienced similar symptoms in the past. The patient has not recently seen a physician. CLOTHES SEPARATOR: 11:32 LMP N/A - Post-menopause vg1 Historical: - Allergies: 11:32 PENICILLINS; vg1 - Home Meds: 11:32 aspirin 81 mg Oral chew 1 tab once daily [Active]; atorvastatin 80 mg Oral tab vg1 [Active]; Dexamethasone Oral [Active]; famotidine 20 mg Oral tab 1 tab every 12 hours [Active]; fluoxetine 20 mg/5 mL (4 mg/mL) Oral soln 5 mL once daily [Active]; hydroxyzine HCl 25 mg Oral tab as needed [Active]; Keppra 500 mg Oral tab 2 times per day [Active]; - PMHx: 11:32 Cerebral Palsy; colon cancer; Hypertension; vg1 - Immunization history:: Adult Immunizations up to date, Client reports receiving the 2nd dose of the Covid vaccine. - Social history:: Smoking status: Patient denies any tobacco usage or history of. ROS: 14:47 Constitutional: Negative for fever, chills, and weight loss. kb 14:47 Abdomen/GI: Positive for accidentally removed gastrostomy tube. 14:47 All other systems are negative. Exam: 14:48 Constitutional: This is a well developed, well nourished patient who is awake, alert, kb and in no acute distress. Head/Face: Normocephalic, atraumatic. ENT: Moist Mucous membranes Respiratory: Respirations even and unlabored. No increased work of breathing, no retractions or nasal flaring. Skin: Warm, dry with normal turgor. Normal color. MS/ Extremity: Pulses equal, no cyanosis. Neurovascular intact. Full, normal range of motion. Neuro: Awake and alert, GCS 15, oriented to person, place, time, and situation. Moves all extremities. Normal gait. Psych: Awake, alert, with orientation to person, place and time. Behavior, mood, and affect are within normal limits. 14:48 Abdomen/GI: Inspection: gastrostomy to upper abd with no drainage, Bowel sounds: normal, Palpation: abdomen is soft and non-tender. Vital Signs: 11:29 BP 139 / 100; Pulse 111; Resp 18; Temp 97.4; Pulse Ox 99% ; Weight 63.5 kg; Height 4 vg1 ft. 10 in. (147.32 cm); Pain 0/10; 13:51 BP 121 / 102; Pulse 94; Resp 18; Pulse Ox 99% on R/A; ld1 11:29 Body Mass Index 29.26 (63.50 kg, 147.32 cm) vg1 Procedures: 14:46 G-tube placement: a 24 [place] catheter was placed, by the ED physician, Divine BARRIOSP-C with assist by Cesar Gutierrez. MDM: 12:01 Patient medically screened. kb 14:47 Data reviewed: vital signs, nurses notes. Data interpreted: Pulse oximetry: on room air kb is 99 %. Interpretation: normal. Counseling: I had a detailed discussion with the patient and/or guardian regarding: the historical points, exam findings, and any diagnostic results supporting the discharge/admit diagnosis, radiology results, the need for outpatient follow up, a family practitioner, to return to the emergency department if symptoms worsen or persist or if there are any questions or concerns that arise at home. 09/17 12:27 Order name: PEG Tube Check w/contrast; Complete Time: 14:11 kb Administered Medications: No medications were administered Disposition: 16:33 Co-signature as Attending Physician, Cesar Gutierrez MD. rn Disposition Summary: 09/17/20 14:13 Discharge Ordered Location: Home kb Condition: Stable kb Diagnosis - Encounter for attention to gastrostomy kb Followup: kb - With: Emergency Department - When: As needed - Reason: Worsening of condition Followup: kb - With: Private Physician - When: 2 - 3 days - Reason: Recheck today's complaints, Continuance of care, Re-evaluation by your physician Discharge Instructions: - Discharge Summary Sheet kb - Gastrostomy Tube Replacement kb Forms: - Medication Reconciliation Form kb - Thank You Letter kb - Antibiotic Education kb - Prescription Opioid Use kb Signatures: Dispatcher [employer] Divine Umanzor, TRUPTI-C TRUPTI-Cesar Benoit MD MD rn Shelley Beach RN RN vg1
--- NOTE | 2020-09-18 17:24 | ER ---
Nurse's Notes [facility] Name: Mireille Munguia Age: 45 yrs Sex: Female : 1975 Arrival Date: 09/17/2020 Time: 10:57 Bed 26 [facility] MD: Roberto Murphy Diagnosis: Encounter for attention to gastrostomy Presentation: 09/17 11:29 Chief complaint: Spouse and/or significant other states: "She was sliding off the bed vg1 and I caught her from completely falling, I bear hugged her and got her back into bed and noticed I accidently pulled her Peg tube out." Pt denies any pain. Site is covered with gauze and a peg tube carbone. Coronavirus screen: Client denies travel out of the [place] in the last 14 days. Ebola Screen: Patient negative for fever greater than or equal to 101.5 degrees Fahrenheit, and additional compatible Ebola Virus Disease symptoms. Initial Sepsis Screen: Does the patient meet any 2 criteria? No. Patient's initial sepsis screen is negative. Does the patient have a suspected source of infection?. Risk Assessment: Do you want to hurt yourself or someone else? Patient reports no desire to harm self or others. Onset of symptoms was September 17, 2020. 11:29 Method Of Arrival: Wheelchair vg1 11:29 Acuity: SYDNI 3 vg1 Triage Assessment: 11:32 General: Appears in no apparent distress. comfortable, Behavior is calm, cooperative. vg1 Pain: Denies pain. 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 LMP N/A - Post-menopause vg1 Historical: - Allergies: 11:32 PENICILLINS; vg1 - Home Meds: 11:32 aspirin 81 mg Oral chew 1 tab once daily [Active]; atorvastatin 80 mg Oral tab vg1 [Active]; Dexamethasone Oral [Active]; famotidine 20 mg Oral tab 1 tab every 12 hours [Active]; fluoxetine 20 mg/5 mL (4 mg/mL) Oral soln 5 mL once daily [Active]; hydroxyzine HCl 25 mg Oral tab as needed [Active]; Keppra 500 mg Oral tab 2 times per day [Active]; - PMHx: 11:32 Cerebral Palsy; colon cancer; Hypertension; vg1 - Immunization history:: Adult Immunizations up to date, Client reports receiving the 2nd dose of the Covid vaccine. - Social history:: Smoking status: Patient denies any tobacco usage or history of. Screenin:22 Abuse screen: Denies threats or abuse. Denies injuries from another. Nutritional ld1 screening: No deficits noted. Tuberculosis screening: No symptoms or risk factors identified. Fall Risk None identified. Assessment: 12:22 General: Appears in no apparent distress. comfortable, Behavior is calm, cooperative, ld1 appropriate for age. 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 Neuro: Level of Consciousness is awake, alert, obeys commands, Oriented to person, place, time, situation. Cardiovascular: Capillary refill < 3 seconds Patient's skin is warm and dry. Respiratory: Airway is patent Respiratory effort is even, unlabored, Respiratory pattern is regular, symmetrical. GI: Abdomen is round non-distended, PEG tube Pulled out of ABD Patient currently denies abdominal pain. : No signs and/or symptoms were reported regarding the genitourinary system. EENT: No signs and/or symptoms were reported regarding the EENT system. Derm: No signs and/or symptoms reported regarding the dermatologic system. Musculoskeletal: No signs and/or symptoms reported regarding the musculoskeletal system. 13:51 Reassessment: Patient appears in no apparent distress at this time. No changes from ld1 previously documented assessment. Patient and/or family updated on plan of care and expected duration. Pain level reassessed. Patient denies pain at this time. Vital Signs: 11:29 BP 139 / 100; Pulse 111; Resp 18; Temp 97.4; Pulse Ox 99% ; Weight 63.5 kg; Height 4 vg1 ft. 10 in. (147.32 cm); Pain 0/10; 13:51 BP 121 / 102; Pulse 94; Resp 18; Pulse Ox 99% on R/A; ld1 11:29 Body Mass Index 29.26 (63.50 kg, 147.32 cm) vg1 ED Course: 10:57 Patient arrived in ED. mr 10:58 Roberto Murphy MD is Private Physician. mr 11:32 Triage completed. vg1 11:32 Arm band placed on Patient placed in waiting room, Patient notified of wait time. vg1 12:01 [facility]C [facility] kb 12:01 Cesar Gutierrez MD is Attending Physician. kb 12:17 Dibbern, Addie, RN is Primary Nurse. ld1 12:22 Patient has correct armband on for positive identification. Placed in gown. Bed in low ld1 position. Call light in reach. Side rails up X2. Pulse ox on. NIBP on. 12:22 No provider procedures requiring assistance completed. ld1 13:48 PEG Tube Check w/contrast In Process Unspecified. EDMS Administered Medications: No medications were administered Outcome: 14:13 Discharge ordered by . kb 15:30 Patient left the ED. aa5 Signatures: Dispatcher [employer] EDMS Divine Dunne, SANDWICH COUNTER ATTENDANT-C SANDWICH COUNTER ATTENDANT-Earlene Sewell mr Sim, Sarah, RN RN aa5 Shelley Beach, RN RN vg1 Addie Castillo, RN RN ld1
[2020-09-19 08:19] VITALS: TEMP 97.4; O2SAT 99
[2020-09-19 08:21] VITALS: BP 121/102
== END 2020-09-17 15:30 | disposition home or self-care (01) ==
LOC: ER 10:54
DX: K94.29 Other complications of gastrostomy (principal); I10 Essential (primary) hypertension; G80.9 Cerebral palsy, unspecified; Z79.82 Long term (current) use of aspirin; Z88.0 Allergy status to penicillin; Z85.038 Personal history of other malignant neoplasm of large intestine
CPT/HCPCS: 49465